=== PATIENT | female | born 1950 | race Caucasian/White ===

== ENCOUNTER → 2017-03-19 | Outpatient (CLI) | payer OTHER ==
[2017-03-19 13:38] LABS: ALT/SGPT 26 U/L (12-78); AST/SGOT 17 U/L (15-37); BLOOD UREA NITROGEN 12 mg/dl (7-18); BUN/CREATININE RATIO 14.9 (10-20); CALCIUM 8.9 mg/dl (8.5-10.1); CARBON DIOXIDE 25 mmol/L (21-32); CHLORIDE 108 mmol/L (98-107); CREATININE 0.82 mg/dl (0.60-1.20); GLUCOSE 107 mg/dl (70-99); POTASSIUM 3.9 mmol/L (3.5-5.1); SODIUM 139 mmol/L (136-145)
[2017-03-19 13:40] LABS: ALB/GLOB RATIO 0.8 (0.9-2); ALKALINE PHOSPHATASE 74 U/L (45-117); CHOLESTEROL 241 mg/dl (0-200); CHOLESTEROL/HDL RATIO 4.8; HDL CHOLESTEROL 50 mg/dl; TRIGLYCERIDES 131 mg/dl (0-150); VERY LOW DENSITY LIPOPROT CALC 26 mg/dl
[2017-03-19 13:53] LABS: ESTIMATED AVERAGE GLUCOSE 123 mg/dl; HA1C FLAG Normal (Normal)
== END | disposition home or self-care (01) ==
LOC: C.LABSPEC 12:32
PROVIDERS: ATTEND Internal Medicine
DX: R73.9 Hyperglycemia, unspecified (principal); E78.5 Hyperlipidemia, unspecified; E66.09 Other obesity due to excess calories

== ENCOUNTER → 2017-04-10 | Outpatient (CLI) | payer OTHER ==
--- NOTE | 2017-04-11 14:20 | MAMMOGRAPHY REPORT ---
BILATERAL DIGITAL SCREENING MAMMOGRAM TOMOSYNTHESIS WITH CAD: 04/10/2017 CLINICAL HISTORY: Routine screening. Patient has no complaints. TECHNIQUE: Breast tomosynthesis in addition to standard 2D mammography was performed. Current study was also evaluated with a Computer Aided Detection (CAD) system. COMPARISON: Comparison is made to exams dated: 04/07/2016 mammogram, 04/06/2015 mammogram, 04/02/2014 mamm ogram, 04/01/2013 mammogram, 03/28/2012 mammogram, and 03/28/2011 mammogram - [facility] BREAST COMPOSITION: The tissue of both breasts is almost entirely fatty. FINDINGS: There are stable grouped punctate calcifications in the right breast. No suspicious mass, architectural distortion or cluster of suspicious microcalcifications is seen. IMPRESSION: ACR BI-RADS CATEGORY 2: BENIGN There is no mammographic evidence of malignancy. A 1 year screening mammogram is recommended. The pa tient will receive written notification of the results. Approximately 10% of breast cancers are not detected with mammography. A negative mammographic report should not delay biopsy if a clinically suggestive mass is present. Jane Spencer M.D. ay/:04/10/2017 18:11:39 Dobie Man: Dulce GONZALEZ(Angelique)(Kelsey), [facility] letter sent: Normal 1/2 BI-RADS Code: ACR BI-RADS Category 2: Benign
== END | disposition home or self-care (01) ==
LOC: C.MAMM 09:38
PROVIDERS: ATTEND Internal Medicine
DX: Z12.31 Encounter for screening mammogram for malignant neoplasm of breast (principal)

== ENCOUNTER 2021-09-30 12:20 | Observation (INO) ==
[2021-09-30] MEDS ORDERED: SODIUM CHLORIDE 0.9% 1000ML 1,000 ML IV SCH (12:45)
--- NOTE | 2021-09-30 13:22 | XRay Report ---
XR chest 1V portable CLINICAL HISTORY: Sepsis. COMPARISON STUDY: Chest radiograph July 05, 2021. FINDINGS: No pneumothorax or pleural effusion is present. There is no evidence for pulmonary edema. C ardiomediastinal silhouette is stable. Moderate left and mild right lung airspace opacities are prese nt. These are new since prior exam. IMPRESSION: Interval development of bilateral airspace opacities greater within the left lung. The f indings favor an infectious process. ACT 112: Negative or not required by law. Electronically signed by: Hunter Phillips M.D. 09/30/2021 1:20 PM
[2021-09-30 13:23] LABS: Prothrombin Time 10.9 Seconds (9.0-12.0)
[2021-09-30 13:42] LABS: Alanine Aminotransferase 64 U/L (7-52); Albumin Globulin Ratio 1.1 (0.9-2); Albumin Level 3.5 gm/dl (3.4-5.0); Alkaline Phosphatase 69 U/L (34-104); Anion Gap 9 (3-11); Aspartate Aminotransferase 33 U/L (13-39); BUN Creatinine Ratio 31.2 (10-20); Bilirubin,Total 0.6 mg/dl (0.2-1.0); Blood Urea Nitrogen 24 mg/dl (6-23); Calcium 8.8 mg/dl (8.5-10.1); Carbon Dioxide 23 mmol/L (21-32); Chloride 102 mmol/L (98-107); Est GFR (African American) 90.7 ml/min; Est GFR (Non-African American) 78.2 ml/min; Globulin 3.3 gm/dl (2.5-4.0); Glucose 108 mg/dl (70-99(Fasting)); Hematocrit (blood only) 39.8 % (37-47); Hemoglobin 13.9 g/dL (12.0-16.0); Magnesium 1.7 mg/dl (1.7-2.4); Mean Corpuscular Hemoglobin 31.2 pg (25-34); Mean Corpuscular Hgb Conc 34.9 g/dL (32-36); Mean Corpuscular Volume 89.4 fL (80-100); Mean Platelet Volume 12.4 fL (7.4-10.4); Platelet Count 86 K/uL (130-400); Potassium 3.3 mmol/L (3.5-5.1); RDW Coefficient of Variation 13.9 % (11.5-14.5); RDW Standard Deviation 45.8 fL (36.4-46.3); Red Blood Count 4.45 M/uL (4.2-5.4); Sodium 134 mmol/L (136-145); Total Protein 6.8 gm/dl (6.0-8.3); White Blood Count 1.24 K/uL (4.8-10.8)
[2021-09-30 13:53] LABS: Basophils # (auto) 0.01 K/uL (0-0.2); Basophils % (auto) 0.8 %; Immature Granulocytes # (auto) 0.01 K/uL (0.00-0.02); Immature Granulocytes % (auto) 0.8 %; Lymphocytes % (auto) 64.5 %; Monocytes # (auto) 0.15 K/uL (0.11-0.59); Monocytes % (auto) 12.1 %; Neutrophils # (auto) 0.27 K/uL (1.4-6.5); Neutrophils % (auto) 21.8 %
[2021-09-30 14:04] LABS: Troponin I < 0.03 ng/ml (0-0.04)
[2021-09-30] MEDS ORDERED: OPTIRAY 320 125ml IV ONE (14:24)
--- NOTE | 2021-09-30 14:29 | CT Scan Report ---
CT head/brain wo con CLINICAL HISTORY: fall Technique: Contiguous axial CT images of the head were acquired from the base of the skull to the khadra xochitl without intravenous contrast administration. Images were viewed in brain, subdural and bone [facility] ws. Automated dose lowering techniques and/or adjustment according to patient size were utilized for this exam. Comparison: None available at the time of this dictation. Findings: The ventricles, basal cisterns, and cerebral sulci are normal. There is no acute intracranial hemorrh age or evidence of acute territorial infarction. Neither mass effect, shift of the midline structures , nor abnormal extra-axial fluid collections are shown. Imaged portions of the paranasal sinuses and mastoid air cells are clear. The orbits appear normal. There are no acute fractures of the calvaria or scalp swelling. Impression: No acute intracranial hemorrhage, no evidence of acute territorial infarction or other acute intracra nial disease process. ACT 112: Negative or not required by law. Electronically signed by: Mark Bernard M.D. 09/30/2021 2:26 PM
--- NOTE | 2021-09-30 14:36 | CT Scan Report ---
CT cervical spine wo con CLINICAL HISTORY: fall TECHNIQUE: Multidetector row helical CT of the cervical spine was performed without administration of intravenous contrast. Coronal and sagittal reformations were obtained. Automated dose lowering techn iques and/or adjustment according to patient size were utilized for this exam. Comparison: None available at the time of this dictation. FINDINGS: No acute fractures or subluxations are identified. Degenerative changes are seen in the visualized sp ine. The alignment is normal. For findings in the chest, please see dedicated CTA chest performed . IMPRESSION: Degenerative changes without evidence of acute bony injury. ACT 112: Negative or not required by law. Electronically signed by: Mark Bernard M.D. 09/30/2021 2:34 PM
--- NOTE | 2021-09-30 14:42 | CT Scan Report ---
CT angio chest PE protocol CLINICAL HISTORY: syncope sob hx ca . Evaluate for pulmonary embolus COMPARISON STUDY: Portable chest from 09/30/2021 CT DOSE: TECHNIQUE: CT Angio of the chest was performed.followed by image post processing with coronal, and s agittal MIP reformats. Contrast Volume: Optiray 320, 120 ml FINDINGS: Vasculature: There is homogeneous perfusion of the pulmonary vasculature bilaterally. No intraluminal filling defects or evidence for pulmonary embolus is seen. Airway: The airway is clear. No endobronchial lesion is identified. Lungs: Compared to the chest radiograph, patchy groundglass opacities are present within both lungs, left greater than right characteristic of a viral type pneumonitis and probable Covid 19 pneumonia. T he lungs are otherwise clear of confluent alveolar opacities, air bronchograms or pulmonary nodules. Pleura: There is no evidence for pleural effusion. There is no evidence for pneumothorax. Mediastinum: There is no evidence for pathologic adenopathy. The heart size is within normal limits. The thoracic aorta is within normal limits. There is no evidence for pericardial effusion. Upper abdomen:The adrenal glands are normal bilaterally. There is a small hiatal hernia. Osseous structures: There is no acute osseous pathology. Impression: 1. No CTA evidence for pulmonary embolus. 2. Compared to the chest radiograph, patchy groundglass opacities are present within both lungs, left greater than right characteristic of a viral type pneumonitis and probable early Covid 19 pneumonia. ACT 112: Negative or not required by law. Electronically signed by: Jeff Herrera M.D. 09/30/2021 2:40 PM
--- NOTE | 2021-09-30 14:44 | CT Scan Report ---
CT abd pelvis IV con only CLINICAL HISTORY: fall TECHNIQUE: Helical axial images of the abdomen and pelvis were obtained and displayed. Automated dose lowering techniques and/or adjustment according to patient size were utilized for this exam. This e xam was performed with intravenous contrast. COMPARISON: None available at the time of this dictation. FINDINGS: Lower chest: No acute abnormality Liver: Hepatic steatosis is noted. Gallbladder and biliary tree: No calcified gallstones. Normal caliber wall. No intra- or extrahepatic biliary ductal dilation. Pancreas: Fatty replacement of the pancreas is seen. Spleen: Unremarkable. Adrenals: Unremarkable. 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 Bladder: Limited evaluation due to underdistention. Reproductive organs: Postsurgical changes are seen in the uterus. Bowel: Diverticulosis is seen without evidence of diverticulitis. A hiatal hernia is seen. The append ix is normal. Lymph nodes Retroperitoneal: Unremarkable. Mesenteric: Unremarkable. Pelvic: Unremarkable. Peritoneum: Normal. Vessels: Atherosclerotic calcifications are seen. Abdominal wall: Unremarkable. Bones: Degenerative changes in the visualized spine. IMPRESSION: 1. No acute abnormalities and in particular no evidence of fracture. 2. Additional findings as above. ACT 112: Negative or not required by law. Electronically signed by: Mark Bernard M.D. 09/30/2021 2:42 PM
--- NOTE | 2021-09-30 16:45 | Emergency Department Note ---
History of Present Illness General Chief complaint: Syncope Stated complaint: CHEMO, FAINTED TWICE LAST NIGHT, DIARRHEA Time Seen by Provider: 09/30/21 12:38 History of Present Illness Provider complaint: Dizziness diarrhea syncope shortness of breath Onset (ago): week(s) 2 Associated symptoms: + nausea/vomiting, + shortness of breath and + syncope; no chest pain, no cough, no fever/chills, no headaches or no weakness 71-year-old female with history of uterine cancer stage I on chemotherapy with Dr. Rose emergency department for dizziness, diarrhea, syncope, and shortness of breath. Patient symptoms have been going on for the last week. Daughter reports that yesterday she had 2 episodes of syncope and laid on the floor for some time. Patient did have COVID-19 in August. Not on any blood thinners.Daughter reports that the patient was in the outpatient [facility] twice this week for IV fluids due to her weakness and low potassium Home Medications Medication Instructions Recorded Confirmed Type ibuprofen 600 mg tablet 600 mg PO DIRECTED PRN 09/30/21 09/30/21 History ondansetron HCl 8 mg tablet 8 mg PO Q8H PRN 09/30/21 09/30/21 History prochlorperazine maleate 10 mg 10 mg PO Q6H PRN 09/30/21 09/30/21 History tablet Allergies Allergy/AdvReac Type Severity Reaction Status Date / Time Penicillins Allergy Intermediate Hives Verified 09/30/21 15:48 Past Med/Surg History Medical History Endometrial cancer dx 02/2021 - surgery 06/2021 + chemo History of herniated intervertebral disc Surgical History H/O colonoscopy History of cataract surgery History of hysterectomy for cancer History of tooth extraction History of tubal ligation Family History Father Cancer Mother Diabetes Sister Diabetes Other No family history of adverse response to anesthesia Social History Smoking Status: Never smoker Second Hand Exposure: No; Hx Alcohol Use: Yes Alcohol type: wine Hx Substance Use: No Preferred Language: Albanian Communication Ability: Effective Cupola Melter Helper Required: No Beliefs That Will Affect Care: None marital status: / Current Living Situation: Family Current Living Situation Comment: son lives with pt current occupational status: retired How many Children do You have: 2 Feels Safe at Home: Yes during the past year weight has: remained stable Assistive Devices: Denture - Upper and Denture - Lower Review of Systems A total of 10 systems reviewed and were otherwise negative Physical Exam Vital Signs Vital Signs - 24 hr 09/30/21 12:22 09/30/21 13:59 Temperature 36.4 C L Temperature Source Temporal Artery Scan Pulse Rate 101 H Pulse Rate [Apical] 71 Respiratory Rate 18 14 Respiratory Depth Normal Blood Pressure 91/59 L Blood Pressure [Right Arm] 122/75 Blood Pressure Mean 69 Blood Pressure Mean [Right Arm] 90 Pulse Oximetry 94 95 Oxygen Delivery Method Room Air Room Air Sepsis Recent Fever Within 48 Hours No Sepsis New/Unexplained Change in Mental Status No Sepsis Action Taken by Nursing No Action Required Physical Exam HENT: Exam performed. -Head: Normocephalic and atraumatic. -Right Ear: External ear normal. No mastoid tenderness. -Left Ear: External ear normal. No mastoid tenderness. -Mouth/Throat: The oropharynx is clear and moist. No trismus in the jaw. No dental abscesses or uvula swelling. No oropharyngeal exudate or tonsillar abscesses. EYES: Conjunctivae and EOM are normal. Pupils are equal, round, and reactive to light. Right eye exhibits no discharge. Left eye exhibits no discharge. No scleral icterus. NECK: Normal range of motion. Neck supple. No JVD present. No spinous process tenderness present. No carotid bruit present. No rigidity. No tracheal deviation and normal range of motion present. No Brudzinski's sign and no Kernig's sign noted. CV: Normal rate, regular rhythm, normal heart sounds and intact distal pulses. There is no peripheral edema. Palpable radial pulses bue. PULM/CHEST: Effort normal and breath sounds normal. No respiratory distress. No stridor. She has no wheezes. She has no rales. -Chest Wall: She exhibits no tenderness. ABD: The abdomen is soft. Bowel sounds are normal. She has no distension. No mass is present. There is no tenderness. There is no rebound, no guarding, no Cartwright's sign and no tenderness at McBurney's point. Rovsig negative MUSC/SKEL: Normal range of motion. There is no peripheral edema, tenderness or deformity. LYMPH: No cervical adenopathy. NEURO: She is alert and oriented to person, place, and time. She has normal strength. No cranial nerve deficit or sensory deficit. Coordination and gait normal. GCS eye subscore is 4. GCS verbal subscore is 5. GCS motor subscore is 6. Cerebellar tests wnl. SKIN: Skin is warm and dry. She is not diaphoretic. PSYCH: She has a normal mood and affect. Behavior is normal. Judgment and thought content normal. Course Course 1238: The patient was evaluated in room B9. A complete history and physical exam was performed Cardiac monitoring: An order was placed for continuous cardiac monitoring. The monitor shows a rate of 70 with sinus rhythm 1535: Vital signs stable. Labs show leukopenia of 1.24 with absolute neutrophil count of 0.27. Discussed this with the patient being on chemotherapy. Patient is not having any fevers. Potassium 3.3. Imaging shows no acute traumatic injury. Imaging does show, pneumonia. Given the patient's recurrent syncopal episodes and weakness. Patient will be admitted to the hospital service Dr. Oconnor notified. Administered Medications Discontinued Medications Sodium Chloride (Nss 1000ml) 1,000 mls @ 999 mls/hr IV .Q1H1M EWA Stop: 09/30/21 13:45 Last Infusion: 09/30/21 14:00 Dose: 0 mls/hr Documented by: [id number] Admin: 09/30/21 13:08 Dose: 999 mls/hr Documented by: [id number] Ioversol (Optiray 320 125ml) 120 ml IV ONCE ONE Stop: 09/30/21 14:25 Last Admin: 09/30/21 14:16 Dose: 120 ml Documented by: [id number] Medical Decision Making Laboratory Data Result diagrams: 09/30/21 12:54 09/30/21 12:54 Lab Results 09/30/21 09/30/21 09/30/21 Range/Units 12:54 12:54 12:54 WBC 1.24 L (4.8-10.8) K/uL RBC 4.45 (4.2-5.4) M/uL Hgb 13.9 (12.0-16.0) g/dL Hct 39.8 (37-47) % MCV 89.4 (80-100) fL MCH 31.2 (25-34) pg MCHC 34.9 (32-36) g/dL RDW Std Deviation 45.8 (36.4-46.3) fL RDW Coeff of Paul 13.9 (11.5-14.5) % Plt Count 86 L (130-400) K/uL MPV 12.4 H (7.4-10.4) fL Immature Gran % (Auto) 0.8 % Neut % (Auto) 21.8 % Lymph % (Auto) 64.5 % Tyler % (Auto) 12.1 % Eos % (Auto) 0.0 % Baso % (Auto) 0.8 % Neut # (Auto) 0.27 L* (1.4-6.5) K/uL Lymph # (Auto) 0.80 L (1.2-3.4) K/uL Tyler # (Auto) 0.15 (0.11-0.59) K/uL Eos # (Auto) 0.00 (0-0.5) K/uL Baso # (Auto) 0.01 (0-0.2) K/uL Immature Gran # (Auto) 0.01 (0.00-0.02) K/uL PT 10.9 (9.0-12.0) Seconds INR 1.0 (0.9-1.1) APTT 27.0 (21.0-31.0) Seconds PTT Ratio 1.0 Sodium 134 L (136-145) mmol/L Potassium 3.3 L (3.5-5.1) mmol/L Chloride 102 (98-107) mmol/L Carbon Dioxide 23 (21-32) mmol/L Anion Gap 9 (3-11) BUN 24 H (6-23) mg/dl Creatinine 0.77 (0.6-1.2) mg/dl Est Cr Clr Drug Dosing Not Reportable Est GFR ( Amer) 90.7 ml/min Est GFR (Non-Af Amer) 78.2 ml/min BUN/Creatinine Ratio 31.2 H (10-20) Glucose 108 H (70-99(Fasting)) mg/dl Lactate (0.4-2.0) mmol/L Calcium 8.8 (8.5-10.1) mg/dl Magnesium 1.7 (1.7-2.4) mg/dl Total Bilirubin 0.6 (0.2-1.0) mg/dl AST 33 (13-39) U/L ALT 64 H (7-52) U/L Alkaline Phosphatase 69 (34-104) U/L Total Creatine Kinase (26-192) U/L Troponin I < 0.03 (0-0.04) ng/ml Total Protein 6.8 (6.0-8.3) gm/dl Albumin 3.5 (3.4-5.0) gm/dl Globulin 3.3 (2.5-4.0) gm/dl Albumin/Globulin Ratio 1.1 (0.9-2) Procalcitonin (0-0.5) ng/ml SARS-CoV-2, RNA, NAAT (NEGATIVE) 09/30/21 09/30/21 09/30/21 Range/Units 12:54 12:54 12:54 WBC (4.8-10.8) K/uL RBC (4.2-5.4) M/uL Hgb (12.0-16.0) g/dL Hct (37-47) % MCV (80-100) fL MCH (25-34) pg MCHC (32-36) g/dL RDW Std Deviation (36.4-46.3) fL RDW Coeff of Paul (11.5-14.5) % Plt Count (130-400) K/uL MPV (7.4-10.4) fL Immature Gran % (Auto) % Neut % (Auto) % Lymph % (Auto) % Tyler % (Auto) % Eos % (Auto) % Baso % (Auto) % Neut # (Auto) (1.4-6.5) K/uL Lymph # (Auto) (1.2-3.4) K/uL Tyler # (Auto) (0.11-0.59) K/uL Eos # (Auto) (0-0.5) K/uL Baso # (Auto) (0-0.2) K/uL Immature Gran # (Auto) (0.00-0.02) K/uL PT (9.0-12.0) Seconds INR (0.9-1.1) APTT (21.0-31.0) Seconds PTT Ratio Sodium (136-145) mmol/L Potassium (3.5-5.1) mmol/L Chloride (98-107) mmol/L Carbon Dioxide (21-32) mmol/L Anion Gap (3-11) BUN (6-23) mg/dl Creatinine (0.6-1.2) mg/dl Est Cr Clr Drug Dosing Est GFR ( Amer) ml/min Est GFR (Non-Af Amer) ml/min BUN/Creatinine Ratio (10-20) Glucose (70-99(Fasting)) mg/dl Lactate 1.1 (0.4-2.0) mmol/L Calcium (8.5-10.1) mg/dl Magnesium (1.7-2.4) mg/dl Total Bilirubin (0.2-1.0) mg/dl AST (13-39) U/L ALT (7-52) U/L Alkaline Phosphatase (34-104) U/L Total Creatine Kinase 119 (26-192) U/L Troponin I (0-0.04) ng/ml Total Protein (6.0-8.3) gm/dl Albumin (3.4-5.0) gm/dl Globulin (2.5-4.0) gm/dl Albumin/Globulin Ratio (0.9-2) Procalcitonin 0.06 (0-0.5) ng/ml SARS-CoV-2, RNA, NAAT (NEGATIVE) 09/30/21 Range/Units 13:05 WBC (4.8-10.8) K/uL RBC (4.2-5.4) M/uL Hgb (12.0-16.0) g/dL Hct (37-47) % MCV (80-100) fL MCH (25-34) pg MCHC (32-36) g/dL RDW Std Deviation (36.4-46.3) fL RDW Coeff of Paul (11.5-14.5) % Plt Count (130-400) K/uL MPV (7.4-10.4) fL Immature Gran % (Auto) % Neut % (Auto) % Lymph % (Auto) % Tyler % (Auto) % Eos % (Auto) % Baso % (Auto) % Neut # (Auto) (1.4-6.5) K/uL Lymph # (Auto) (1.2-3.4) K/uL Tyler # (Auto) (0.11-0.59) K/uL Eos # (Auto) (0-0.5) K/uL Baso # (Auto) (0-0.2) K/uL Immature Gran # (Auto) (0.00-0.02) K/uL PT (9.0-12.0) Seconds INR (0.9-1.1) APTT (21.0-31.0) Seconds PTT Ratio Sodium (136-145) mmol/L Potassium (3.5-5.1) mmol/L Chloride (98-107) mmol/L Carbon Dioxide (21-32) mmol/L Anion Gap (3-11) BUN (6-23) mg/dl Creatinine (0.6-1.2) mg/dl Est Cr Clr Drug Dosing Est GFR ( Amer) ml/min Est GFR (Non-Af Amer) ml/min BUN/Creatinine Ratio (10-20) Glucose (70-99(Fasting)) mg/dl Lactate (0.4-2.0) mmol/L Calcium (8.5-10.1) mg/dl Magnesium (1.7-2.4) mg/dl Total Bilirubin (0.2-1.0) mg/dl AST (13-39) U/L ALT (7-52) U/L Alkaline Phosphatase (34-104) U/L Total Creatine Kinase (26-192) U/L Troponin I (0-0.04) ng/ml Total Protein (6.0-8.3) gm/dl Albumin (3.4-5.0) gm/dl Globulin (2.5-4.0) gm/dl Albumin/Globulin Ratio (0.9-2) Procalcitonin (0-0.5) ng/ml SARS-CoV-2, RNA, NAAT POSITIVE A* (NEGATIVE) Imaging Data Radiologist's Impression: Chest X-Ray 09/30/21 12:39 XR chest 1V portable CLINICAL HISTORY: Sepsis. COMPARISON STUDY: Chest radiograph July 05, 2021. FINDINGS: No pneumothorax or pleural effusion is present. There is no evidence for pulmonary edema. Cardiomediastinal silhouette is stable. Moderate left and mild right lung airspace opacities are present. These are new since prior exam. IMPRESSION: Interval development of bilateral airspace opacities greater within the left lung. The findings favor an infectious process. ACT 112: Negative or not required by law. Electronically signed by: Hunter Phillips M.D. 09/30/2021 1:20 PM Abdomen/Pelvis CT 09/30/21 12:50 CT abd pelvis IV con only CLINICAL HISTORY: fall TECHNIQUE: Helical axial images of the abdomen and pelvis were obtained and displayed. Automated dose lowering techniques and/or adjustment according to patient size were utilized for this exam. This exam was performed with intravenous contrast. COMPARISON: None available at the time of this dictation. FINDINGS: Lower chest: No acute abnormality Liver: Hepatic steatosis is noted. Gallbladder and biliary tree: No calcified gallstones. Normal caliber wall. No intra- or extrahepatic biliary ductal dilation. Pancreas: Fatty replacement of the pancreas is seen. Spleen: Unremarkable. Adrenals: Unremarkable. 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 Bladder: Limited evaluation due to underdistention. Reproductive organs: Postsurgical changes are seen in the uterus. Bowel: Diverticulosis is seen without evidence of diverticulitis. A hiatal hernia is seen. The appendix is normal. Lymph nodes Retroperitoneal: Unremarkable. Mesenteric: Unremarkable. Pelvic: Unremarkable. Peritoneum: Normal. Vessels: Atherosclerotic calcifications are seen. Abdominal wall: Unremarkable. Bones: Degenerative changes in the visualized spine. IMPRESSION: 1. No acute abnormalities and in particular no evidence of fracture. 2. Additional findings as above. ACT 112: Negative or not required by law. Electronically signed by: Mark Bernard M.D. 09/30/2021 2:[address] 09/30/21 12:50 CT cervical spine wo con CLINICAL HISTORY: fall TECHNIQUE: Multidetector row helical CT of the cervical spine was performed without administration of intravenous contrast. Coronal and sagittal reformations were obtained. Automated dose lowering techniques and/or adjustment according to patient size were utilized for this exam. Comparison: None available at the time of this dictation. FINDINGS: No acute fractures or subluxations are identified. Degenerative changes are seen in the visualized spine. The alignment is normal. For findings in the chest, please see dedicated CTA chest performed same day. IMPRESSION: Degenerative changes without evidence of acute bony injury. ACT 112: Negative or not required by law. Electronically signed by: Mark Bernard M.D. 09/30/2021 2:34 PM Chest CTA 09/30/21 12:50 CT angio chest PE protocol CLINICAL HISTORY: syncope sob hx ca . Evaluate for pulmonary embolus COMPARISON STUDY: Portable chest from 09/30/2021 CT DOSE: TECHNIQUE: CT Angio of the chest was performed.followed by image post processing with coronal, and sagittal MIP reformats. Contrast Volume: Optiray 320, 120 ml FINDINGS: Vasculature: There is homogeneous perfusion of the pulmonary vasculature bilaterally. No intraluminal filling defects or evidence for pulmonary embolus is seen. Airway: The airway is clear. No endobronchial lesion is identified. Lungs: Compared to the chest radiograph, patchy groundglass opacities are present within both lungs, left greater than right characteristic of a viral type pneumonitis and probable Covid 19 pneumonia. The lungs are otherwise clear of confluent alveolar opacities, air bronchograms or pulmonary nodules. Pleura: There is no evidence for pleural effusion. There is no evidence for pneumothorax. Mediastinum: There is no evidence for pathologic adenopathy. The heart size is within normal limits. The thoracic aorta is within normal limits. There is no evidence for pericardial effusion. Upper abdomen:The adrenal glands are normal bilaterally. There is a small hiatal hernia. Osseous structures: There is no acute osseous pathology. Impression: 1. No CTA evidence for pulmonary embolus. 2. Compared to the chest radiograph, patchy groundglass opacities are present within both lungs, left greater than right characteristic of a viral type pneumonitis and probable early Covid 19 pneumonia. ACT 112: Negative or not required by law. Electronically signed by: Jeff Herrera M.D. 09/30/2021 2:[address] 09/30/21 12:50 CT head/brain wo con CLINICAL HISTORY: fall Technique: Contiguous axial CT images of the head were acquired from the base of the skull to the vertex without intravenous contrast administration. Images were viewed in brain, subdural and bone windows. Automated dose lowering techniques and/or adjustment according to patient size were utilized for this exam. Comparison: None available at the time of this dictation. Findings: The ventricles, basal cisterns, and cerebral sulci are normal. There is no acute intracranial hemorrhage or evidence of acute territorial infarction. Neither mass effect, shift of the midline structures, nor abnormal extra-axial fluid collections are shown. Imaged portions of the paranasal sinuses and mastoid air cells are clear. The orbits appear normal. There are no acute fractures of the calvaria or scalp swelling. Impression: No acute intracranial hemorrhage, no evidence of acute territorial infarction or other acute intracranial disease process. ACT 112: Negative or not required by law. Electronically signed by: Mark Bernard M.D. 09/30/2021 2:26 PM ECG Data Indication: + SOB/dyspnea Rate (beats per minute): 76 Rhythm: + normal sinus ECG Intervals/blocks: + Normal QRS, + Normal ND and + Normal QT-c ECG ST segments: + Normal ST segments [facility] Narrative 1238: The patient was evaluated in room B9. A complete history and physical exam was performed Cardiac monitoring: An order was placed for continuous cardiac monitoring. The monitor shows a rate of 70 with sinus rhythm 1535: Vital signs stable. Labs show leukopenia of 1.24 with absolute neutrophil count of 0.27. Discussed this with the patient being on chemotherapy. Patient is not having any fevers. Potassium 3.3. Imaging shows no acute traumatic injury. Imaging does show, pneumonia. Given the patient's recurrent syncopal episodes and weakness. Patient will be admitted to the hospital service Dr. Oconnor notified. Impression & Plan Syncope, Uterine cancer Discharge Plan Visit Data Chief Complaint: Syncope Stated Complaint: CHEMO, FAINTED TWICE LAST NIGHT, DIARRHEA Discharge Problem: Syncope, Uterine cancer Patient Disposition: Being Evaluated by Hospitalist Forms Stand Alone Forms: [facility] [place] [employer] Prescriptions Prescriptions: No Action ondansetron HCl 8 mg tablet 8 mg PO Q8H PRN (Reason: NAUSEA/VOMITING) RF: 0 prochlorperazine maleate 10 mg tablet 10 mg PO Q6H PRN (Reason: NAUSEA/VOMITING) RF: 0 ibuprofen 600 mg tablet 600 mg PO DIRECTED PRN (Reason: Pain) RF: 0 Referrals Referrals: Renan Reyes MD [Primary Care Provider] -
[2021-09-30] MEDS ORDERED: POTASSIUM CHLORIDE CRTAB 20 MEQ TABCR PO STA (18:19)
--- NOTE | 2021-09-30 18:46 | History & Physical Report ---
Date of Service September 30, 2021 Assessment & Plan (1) Syncope: Plan: -Etiology likely due to dehydration/orthostasis response in the setting of ongoing GI losses as well as patient's poor po intake the past week s/p chemo. Also have to consider the possibility of met dz to brain. Dr. Ko was planning to order a brain MRI on 10/05 to investigate ? mets to brain. Will order while inpatient. -LR IVF @ 80 cc/hr, had received 1 L NS in bolus. -Check orthostatics in the morning (2) Hypokalemia: Plan: -K+ 3.3 in ED, Mg2+ low end normal at 1.7. has been going to [facility] for IVF and K repletion. -40 mEq KCl ordered. Also will replete Mg with 2 g in the ssetting of ongoing GI losses. -Repeat BMP w/ Mg2+ in AM. (3) Diarrhea: Plan: -Has been incredibly frequent since Sunday evening, patient unable to quantify. Yellow/orange in appearance, without mucus or blood noted. No abdominal pain. -Stool PCR to include c-diff ordered, pending. If c-diff is NEG, can start anti- diarrheal tomorrow. (4) Pancytopenia: Plan: -WBC 1.24, (4.21 on 09/26) PLT 86 (125 on 09/26) Patient with chills at home but no fever. -No sign of infections, without cough, URI sx, abdominal pain, dysuria. -Placed on neutropenic precautions, Dr. Ko with oncology consulted, ? Neupogen (5) Shortness of breath: Plan: -Likely a side effect of her COVID which she tested positive for on 09/13, still testing positive today. On RA. -Can order her nebs PRN. -CTA chest--> patchy groundglass opacities are present within both lungs, left greater than right characteristic of a viral type pneumonitis and probable early Covid 19 pneumonia. -We will keep on isolation precautions for now -No need for antibiotics -Outside the window for any further treatment for Covid (6) Uterine cancer: Plan: -S/P lap hysterectomy in June 2021, undergoing chemotherapy--> 2nd cycle last , 09/22. -Patient with new onset dizziness for week or so, per pt Dr. Ko was planning to order a brain MRI on 10/05 to investigate ? edil to brain. Will order while inpatient. Plan: -Admit to med/surg with tele. -SCDs and Lovenox for DVT ppx. -Full Code. History of Present Illness Chief Complaint: generalized weakness Primary Care Provider: Renan Reyes MD Patient is 71-year-old previously healthy female diagnosed with uterine cancer in June 2021 and COVID in August 2021 who presents today with complaints of generalized weakness. Patient has had 2 cycles of chemotherapy so far, most recently had second round last . Since then she has developed fatigue, generalized weakness, dizziness. She is not nauseous or vomiting, however reports she does not have an appetite so she is struggling to keep up with p.o. intake. Additionally, she has felt "winded ", she is becoming out of breath with daily activities of living, daughter is had to help dress her on several occasions due to weakness and shortness of breath. Most recently, on Sunday evening she developed diarrhea that has been frequent since then. She does not note blood in it, states it looks dark yellow/orange. She has not taken anything for alleviation. Last night, patient had 2 unwitnessed syncopal episodes while she was in her bathroom. Denies hitting her head, but does not remember events leading up to or during fall. Daughter reports taking orthostatic VS at home, states BP did drop a decent bit upon standing. Denies chest pain, palpitations, cough, nausea, vomiting, constipation, melena, hematochezia, focal weakness, increased urinary frequency urgency, dysuria, hematuria.She has started going to [facility] for [facility]F and potassium supplementation. Allergies Allergy/AdvReac Type Severity Reaction Status Date / Time Penicillins Allergy Intermediate Hives Verified 09/30/21 15:48 Home Medications Medication Instructions Recorded Confirmed Type ibuprofen 600 mg tablet 600 mg PO DIRECTED PRN 09/30/21 09/30/21 History ondansetron HCl 8 mg tablet 8 mg PO Q8H PRN 09/30/21 09/30/21 History prochlorperazine maleate 10 mg 10 mg PO Q6H PRN 09/30/21 09/30/21 History tablet Past Med/Surg History Medical History Endometrial cancer dx 02/2021 - surgery 06/2021 + chemo History of herniated intervertebral disc Surgical History H/O colonoscopy History of cataract surgery History of hysterectomy for cancer History of tooth extraction History of tubal ligation Family History Father Cancer Mother Diabetes Sister Diabetes Other No family history of adverse response to anesthesia Social History Smoking Status: Never smoker Second Hand Exposure: No; Hx Alcohol Use: No Hx Substance Use: No Preferred Language: Belarusian Communication Ability: Effective Storage Engineer Required: No Beliefs That Will Affect Care: None marital status: / Current Living Situation: Family Current Living Situation Comment: with son current occupational status: retired How many Children do You have: 2 Other Information That Helps Us Care for You: No Feels Safe at Home: Yes Safety Concerns: Feels Safe At This Time during the past year weight has: remained stable Assistive Devices: Denture - Upper and Denture - Lower Review of Systems Review of Systems: Constitutional: reports generalized weakness and fatigue with chills; no recorded fever, night sweats, acute weight changes Eyes: No diplopia, no worsening or blurred vision ENT: normal hearing, no trouble swallowing Respiratory: has felt SOB for several weeks; No cough Cardviovascular: 2 episodes of syncope last evening, unwitnessed; no chest pain, no palpitations, no chest tightness Abdomen: has had diarrhea x2 days; no pain, nausea, vomiting, or constipation; no hematochezia or melena Musculoskeletal: No joint pain, calf pain, swelling Neurologic: no weakness, numbness/tingling, or balance problems Psychiatric: No anxiety or depression Skin: No rash or itch Results & Data Results & Data ([facility]) Vital Signs (Past 12 Hours) Vital Signs Temp Pulse Pulse Resp BP BP Pulse Ox 09/30/21 17:44 74 16 127/74 96 09/30/21 13:59 71 14 122/75 95 09/30/21 12:22 36.4 C L 101 H 18 91/59 L 94 Laboratory Results Abnormal lab results 09/30/21 09/30/21 09/30/21 Range/Units 12:54 12:54 13:05 WBC 1.24 L (4.8-10.8) K/uL Plt Count 86 L (130-400) K/uL MPV 12.4 H (7.4-10.4) fL Neut # (Auto) 0.27 L* (1.4-6.5) K/uL Lymph # (Auto) 0.80 L (1.2-3.4) K/uL Sodium 134 L (136-145) mmol/L Potassium 3.3 L (3.5-5.1) mmol/L BUN 24 H (6-23) mg/dl BUN/Creatinine Ratio 31.2 H (10-20) Glucose 108 H (70-99(Fasting)) mg/dl ALT 64 H (7-52) U/L SARS-CoV-2, RNA, NAAT POSITIVE A* (NEGATIVE) Diagnostic Findings Chest X-Ray 09/30/21 12:39 XR chest 1V portable CLINICAL HISTORY: Sepsis. COMPARISON STUDY: Chest radiograph July 05, 2021. FINDINGS: No pneumothorax or pleural effusion is present. There is no evidence for pulmonary edema. Cardiomediastinal silhouette is stable. Moderate left and mild right lung airspace opacities are present. These are new since prior exam. IMPRESSION: Interval development of bilateral airspace opacities greater within the left lung. The findings favor an infectious process. ACT 112: Negative or not required by law. Electronically signed by: Hunter Phillips M.D. 09/30/2021 1:20 PM Abdomen/Pelvis CT 09/30/21 12:50 CT abd pelvis IV con only CLINICAL HISTORY: fall TECHNIQUE: Helical axial images of the abdomen and pelvis were obtained and displayed. Automated dose lowering techniques and/or adjustment according to patient size were utilized for this exam. This exam was performed with intravenous contrast. COMPARISON: None available at the time of this dictation. FINDINGS: Lower chest: No acute abnormality Liver: Hepatic steatosis is noted. Gallbladder and biliary tree: No calcified gallstones. Normal caliber wall. No intra- or extrahepatic biliary ductal dilation. Pancreas: Fatty replacement of the pancreas is seen. Spleen: Unremarkable. Adrenals: Unremarkable. 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 Bladder: Limited evaluation due to underdistention. Reproductive organs: Postsurgical changes are seen in the uterus. Bowel: Diverticulosis is seen without evidence of diverticulitis. A hiatal hernia is seen. The appendix is normal. Lymph nodes Retroperitoneal: Unremarkable. Mesenteric: Unremarkable. Pelvic: Unremarkable. Peritoneum: Normal. Vessels: Atherosclerotic calcifications are seen. Abdominal wall: Unremarkable. Bones: Degenerative changes in the visualized spine. IMPRESSION: 1. No acute abnormalities and in particular no evidence of fracture. 2. Additional findings as above. ACT 112: Negative or not required by law. Electronically signed by: Mark Bernard M.D. 09/30/2021 2:[address] 09/30/21 12:50 CT cervical spine wo con CLINICAL HISTORY: fall TECHNIQUE: Multidetector row helical CT of the cervical spine was performed without administration of intravenous contrast. Coronal and sagittal reformations were obtained. Automated dose lowering techniques and/or adjustment according to patient size were utilized for this exam. Comparison: None available at the time of this dictation. FINDINGS: No acute fractures or subluxations are identified. Degenerative changes are seen in the visualized spine. The alignment is normal. For findings in the chest, please see dedicated CTA chest performed same day. IMPRESSION: Degenerative changes without evidence of acute bony injury. ACT 112: Negative or not required by law. Electronically signed by: Mark Bernard M.D. 09/30/2021 2:34 PM Chest CTA 09/30/21 12:50 CT angio chest PE protocol CLINICAL HISTORY: syncope sob hx ca . Evaluate for pulmonary embolus COMPARISON STUDY: Portable chest from 09/30/2021 CT DOSE: TECHNIQUE: CT Angio of the chest was performed.followed by image post processing with coronal, and sagittal MIP reformats. Contrast Volume: Optiray 320, 120 ml FINDINGS: Vasculature: There is homogeneous perfusion of the pulmonary vasculature bilaterally. No intraluminal filling defects or evidence for pulmonary embolus is seen. Airway: The airway is clear. No endobronchial lesion is identified. Lungs: Compared to the chest radiograph, patchy groundglass opacities are present within both lungs, left greater than right characteristic of a viral type pneumonitis and probable Covid 19 pneumonia. The lungs are otherwise clear of confluent alveolar opacities, air bronchograms or pulmonary nodules. Pleura: There is no evidence for pleural effusion. There is no evidence for pneumothorax. Mediastinum: There is no evidence for pathologic adenopathy. The heart size is within normal limits. The thoracic aorta is within normal limits. There is no evidence for pericardial effusion. Upper abdomen:The adrenal glands are normal bilaterally. There is a small hiatal hernia. Osseous structures: There is no acute osseous pathology. Impression: 1. No CTA evidence for pulmonary embolus. 2. Compared to the chest radiograph, patchy groundglass opacities are present within both lungs, left greater than right characteristic of a viral type pneumonitis and probable early Covid 19 pneumonia. ACT 112: Negative or not required by law. Electronically signed by: Jeff Herrera M.D. 09/30/2021 2:[address] 09/30/21 12:50 CT head/brain wo con CLINICAL HISTORY: fall Technique: Contiguous axial CT images of the head were acquired from the base of the skull to the vertex without intravenous contrast administration. Images were viewed in brain, subdural and bone windows. Automated dose lowering techniques and/or adjustment according to patient size were utilized for this exam. Comparison: None available at the time of this dictation. Findings: The ventricles, basal cisterns, and cerebral sulci are normal. There is no acute intracranial hemorrhage or evidence of acute territorial infarction. Neither mass effect, shift of the midline structures, nor abnormal extra-axial fluid collections are shown. Imaged portions of the paranasal sinuses and mastoid air cells are clear. The orbits appear normal. There are no acute fractures of the calvaria or scalp swelling. Impression: No acute intracranial hemorrhage, no evidence of acute territorial infarction or other acute intracranial disease process. ACT 112: Negative or not required by law. Electronically signed by: Mark Bernard M.D. 09/30/2021 2:26 PM ECG Additional Comments: Normal sinus rhythm Left axis deviation Voltage criteria for left ventricular hypertrophy Abnormal ECG No previous ECGs available Confirmed by Giorgio Hoyos ([id number]) on 09/30/2021 7:10:26 PM Code Status & VTE Plan Code Status Full Code. VTE Prophylaxis Plan VTE Prophylaxis will be ordered: Yes Supervising Physician Co-Signing Physician Notes PA Supervision Note: I personally saw and examined the patient. I verified all wall points and agree with RITA Martins with the following exceptions and/or additions: This patient is a 71-year-old female with history of uterine cancer currently on chemotherapy who presents with severe diarrhea, generalized weakness and falls with syncope, thought to be related to orthostasis She has had more than 10 loose stools per day that are nonbloody since starting chemotherapy. She has barely eating or drinking anything by mouth given low appetite and some nausea. Recently also had Covid 2 weeks ago for that. Currently has some shortness of breath. Denies abdominal pains. Did not injure herself or hit her head that she knows of when she passed out in the bathroom. She denies any joint pains, denies headache. O- Vitals reviewed Gen: AAOx3, NAD, alopecia HEENT: Anicteric sclerae, EOMI CV: RRR no mgr nl S1S2 Pulm: CTAB no wcr Abd: +BS soft NT ND no masses or hernias Ext: No edema, 2+ DP pulses Skin: No rashes, warm/dry Neuro: Full strength throughout Labs and rads reviewed, ECG reviewed [id number]-old female with uterine cancer on chemotherapy, here with dehydration secondary to diarrhea, with hypokalemia and syncope likely related to orthostasis. -Admit for IV fluid hydration, replacement of potassium -Check orthostatics in the morning -Check brain MRI -Follow CBC counts and hold Lovenox if platelets less than 50,000 PG Care Time/CCT Total # of Minutes Spent Total Time Spent with Patient: Total time spent is greater than 50% in coordination of care (as documented) at patient's floor/unit and/or counseling patient: Coding Level of Care Code 75682 Initial Inpt Care Lvl 3 Diagnoses Syncope R55 Syncope type: unspecified Uterine cancer C55 Malignant neoplasm of uterus location: unspecified site of uterus Hypokalemia E87.6 Pancytopenia D61.818 Diarrhea R19.7 Shortness of breath R06.02 (1) Syncope Syncope type: unspecified Qualified Code(s): R55 - Syncope and collapse (2) Uterine cancer Malignant neoplasm of uterus location: unspecified site of uterus Qualified Code(s): C55 - Malignant neoplasm of uterus, part unspecified
--- NOTE | 2021-09-30 19:10 | Electrocardiogram Report ---
Test Reason : Blood Pressure : / mmHG Vent. Rate : 076 BPM Atrial Rate : 076 BPM P-R Int : 144 ms QRS Dur : 090 ms QT Int : 386 ms P-R-T Axes : 036 -30 049 degrees QTc Int : 434 ms Normal sinus rhythm Left axis deviation Voltage criteria for left ventricular hypertrophy Abnormal ECG No previous ECGs available Confirmed by Giorgio Hoyos ([id number]) on 09/30/2021 7:10:26 PM Referred By: REFERRED SELF Confirmed By:Cruz Hoyos
[2021-09-30] MEDS: LACTATED RINGER'S 1,000 ML IV SCH (19:37)
[2021-09-30] MEDS ORDERED: ALBUTEROL 0.083% NEBU SOLN 3 ML VIAL NEB PRN (20:57)
[2021-09-30] MEDS ORDERED: ONDANSETRON INJ 2 MG/ML 2 ML VIAL IV PRN (20:57)
[2021-09-30] MEDS ORDERED: POLYETHYLENE (MIRALAX) 17 GM PACK PO PRN (20:57)
[2021-09-30] MEDS ORDERED: ACETAMINOPHEN 325 MG TAB PO PRN (20:57)
[2021-09-30] MEDS ORDERED: GADOBUTROL 65ML VIAL IV ONE (22:13)
--- NOTE | 2021-09-30 22:38 | Magnetic Resonance Report ---
MR brain wo/w con CLINICAL HISTORY: uterine CA with new onset dizziness TECHNIQUE: Multiplanar and multisequence MR images of the brain were obtained prior to and following administration of gadolinium contrast. Comparison: None available at the time of this dictation. FINDINGS: No abnormal restricted diffusion is identified. Foci of T2 and FLAIR hyperintensity are noted in the paraventricular areas consistent with chronic small vessel ischemic disease. Ex vacuo ventriculomegal y and sulcal enlargement is noted compatible with diffuse encephalomalacia. There are no masses, mass effect, or midline shift. No abnormal enhancement is seen. There is no evidence of acute intraparenc hymal hemorrhage. No extra axial fluid collections are seen. The corpus callosum, pituitary gland, an d cerebellar tonsils appear grossly unremarkable. Flow voids of the major intracranial arterial vessels are identified. The imaged portions of the para nasal sinuses, mastoid air cells, and orbits are unremarkable. IMPRESSION: No acute abnormalities in particular no evidence of metastatic disease.. ACT 112: Negative or not required by law. Electronically signed by: Mark Bernard M.D. 09/30/2021 10:37 PM
[2021-09-30] MEDS: POTASSIUM CHLORIDE / WTR 10 MEQ/100 ML PLCT IV SCH (22:57)
[2021-09-30] MEDS: ENOXAPARIN INJ 40 MG/0.4 ML SYR SQ SCH (23:07)
[2021-09-30 23:46] LABS: Appearance Urine Clear (Clear); Bacteria Urine Automated Negative (Negative); Bilirubin Urine Negative (Negative); Blood Urine Trace (Negative); Color Urine Dark Yellow; Epithelial Cell Urine Auto >30 /lpf (0-5); Glucose Urine UA Negative (Negative); Ketones Urine Negative (Negative); Leukocyte Esterase Urine Negative (Negative); Nitrite Urine Negative (Negative); Protein Urine Trace (Negative); Specific Gravity Urine > 1.045 (1.000-1.030); Urobilinogen Urine Negative (Negative)
[2021-10-01] MEDS: POTASSIUM CHLORIDE / WTR 10 MEQ/100 ML PLCT IV SCH (00:15)
[2021-10-01 01:00] LABS: Adenovirus F 40/41 PCR Not Detected (NotDetected); Astrovirus PCR Not Detected (NotDetected); Campylobacter PCR Not Detected (NotDetected); Clostridium diff Toxin A/B PCR Not Detected (NotDetected); Cryptosporidium PCR Not Detected (NotDetected); Cyclospora cayetanensis PCR Not Detected (NotDetected); Entamoeba histolytica PCR Not Detected (NotDetected); Enteroaggregative E.coli(EAEC) Not Detected (NotDetected); Enteropathogenic E.coli (EPEC) Not Detected (NotDetected); Enterotoxigenic E.coli (ETEC) Not Detected (NotDetected); Giardia lamblia PCR Not Detected (NotDetected); Norovirus GI/GII PCR Not Detected (NotDetected); Plesiomonas shigelloides PCR Not Detected (NotDetected); Rotavirus A PCR Not Detected (NotDetected); Salmonella PCR Not Detected (NotDetected); Sapovirus PCR Not Detected (NotDetected); Shiga-like Toxin E.coli (STEC) Not Detected (NotDetected); Shigella/Enteroinvasive E.coli Not Detected (NotDetected); Vibrio cholerae PCR Not Detected (NotDetected); Vibrio species PCR Not Detected (NotDetected); Yersinia enterocolitica PCR Not Detected (NotDetected)
[2021-10-01 08:07] LABS: Hematocrit (blood only) 35.8 % (37-47); Hemoglobin 11.9 g/dL (12.0-16.0); Mean Corpuscular Hemoglobin 30.4 pg (25-34); Mean Corpuscular Hgb Conc 33.2 g/dL (32-36); Mean Corpuscular Volume 91.3 fL (80-100); Mean Platelet Volume 12.3 fL (7.4-10.4); Platelet Count 75 K/uL (130-400); RDW Coefficient of Variation 14.2 % (11.5-14.5); RDW Standard Deviation 46.9 fL (36.4-46.3); Red Blood Count 3.92 M/uL (4.2-5.4); White Blood Count 1.15 K/uL (4.8-10.8)
[2021-10-01 08:20] LABS: BUN Creatinine Ratio 33.3 (10-20); Calcium 7.6 mg/dl (8.5-10.1); Creatinine Clr Calc Pharmacy 85.4 ml/min; Est GFR (African American) 108.9 ml/min; Est GFR (Non-African American) 93.9 ml/min; Magnesium 1.8 mg/dl (1.7-2.4); Potassium 3.5 mmol/L (3.5-5.1)
[2021-10-01 08:26] LABS: Basophils # (auto) 0.01 K/uL (0-0.2); Basophils % (auto) 0.9 %; Eosinophils # (auto) 0.01 K/uL (0-0.5); Eosinophils % (auto) 0.9 %; Lymphocytes # (auto) 0.87 K/uL (1.2-3.4); Lymphocytes % (auto) 75.7 %; Monocytes # (auto) 0.18 K/uL (0.11-0.59); Monocytes % (auto) 15.7 %; Neutrophils # (auto) 0.08 K/uL (1.4-6.5); Neutrophils % (auto) 6.8 %
[2021-10-01] MEDS ORDERED: POTASSIUM CHLORIDE CRTAB 20 MEQ TABCR PO STA (08:28)
[2021-10-01] MEDS: LACTATED RINGER'S 1,000 ML IV SCH ×2 (08:29→20:56)
[2021-10-01] MEDS ORDERED: MAGNESIUM SULFATE / D5W 1 GM/100 ML BAG IV ONE (09:00)
--- NOTE | 2021-10-01 11:38 | Consultation Report ---
DATE OF SERVICE: 10/01/2021. REASON FOR CONSULTATION: Pancytopenia, on chemotherapy. HISTORY OF PRESENT ILLNESS: Ms. 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 Given serous carcinoma and risk for recurrence, she was started on adjuvant chemotherapy with carboplatin/paclitaxel on 08/29/2021 and received second cycle of treatment on 09/22/2021. Of note, between her first and second cycles of treatment, she was diagnosed to have COVID-19 infection during preoperative testing prior to MediPort placement. Since then, she has experienced multiple symptoms including fatigue, poor appetite, nausea and dizziness. This necessitated multiple infusion visits at the [facility] for IV fluid hydration. Despite this, she complained of persistent dizziness for which brain MRI was ordered as an outpatient, which was scheduled to be performed on 10/05/2021. She however continued to experience worsening dizziness and presented to the ER yesterday with complaints of fatigue, dizziness, diarrhea and generalized weakness. Labs obtained on admission were significant for chemotherapy-induced pancytopenia with white cell count of 1.24, ANC of 270, hemoglobin of 13.9, and platelet count of 86,000. She was also found to be slightly hypokalemic with potassium of 3.3. Imaging studies obtained on admission including CT abdomen and pelvis was negative. CT cervical spine revealed degenerative changes without evidence of acute bony injury. CTA performed on 09/30/2021 revealed patchy ground-glass opacities within both lungs, left greater than right characteristic of viral-type pneumonitis and probable early COVID-[address] head on 09/30/2021 was negative. MRI brain on 09/30/2021 also was negative for metastatic disease. She was started on IV fluids and placed on isolation for COVID-19 pneumonia. Stool studies were also performed to rule out Clostridium difficile. During my evaluation of the patient today, she complains of dizziness, shortness of breath, diarrhea. PAST MEDICAL HISTORY: Endometrial carcinoma. PAST SURGICAL HISTORY: History of hysterectomy/BSO. MEDICATIONS PRIOR TO ADMISSION: Zofran 8 mg p.o. q. 8 hours as needed, Compazine 10 mg p.o. q. 6 hours as needed. ALLERGIES: PENICILLINS. SOCIAL HISTORY: Denies smoking, alcohol and illicit drug use. FAMILY HISTORY: Nonsignificant. REVIEW OF SYSTEMS: CONSTITUTIONAL: Positive for fatigue. Negative for weight loss, night sweats or fever. EYES: Negative for change in vision. CARDIOVASCULAR: Negative for chest pain, palpitations, or diaphoresis. Positive for dizziness. RESPIRATORY: Positive for shortness of breath. No hemoptysis or cough. GASTROINTESTINAL: Positive for nausea and diarrhea. No abdominal pain, hematemesis, melena, vomiting, or dyspepsia. GENITOURINARY: Negative for urinary frequency, hematuria, or dysuria. NEUROLOGIC: Positive for weakness. No headaches. LYMPHATICS AND HEMATOLOGIC: Negative for abnormal bleeding or new adenopathy. PHYSICAL EXAMINATION: VITAL SIGNS: Blood pressure 113/71, heart rate 61, respiratory rate 20, temperature 36.6, oxygen saturation 95% on room air. EYES: Eyes are without conjunctival erythema or icterus. ENT: External examination was negative for masses. NECK: Negative for masses or palpable adenopathy. RESPIRATORY: Lung sounds were generally clear bilaterally. CARDIOVASCULAR: Heart was regular rate and rhythm without significant murmur, gallops, or rubs. GASTROINTESTINAL: No palpable hepatosplenomegaly. ABDOMEN: Soft with normal bowel sounds. LYMPHATIC SYSTEM: No palpable peripheral lymphadenopathy. EXTREMITIES: Negative for edema or erythema. LABORATORY DATA: CBC from 10/01/2021 revealed white count of 1.15, hemoglobin of 11.9, hematocrit of 35.8, platelet count of 75,000 with ANC of 80. IMAGING STUDIES: CT abdomen and pelvis on 09/30/2021, impression, no acute abnormalities and in particular no evidence of fracture. Cervical spine on ____, impression, degenerative changes without evidence of acute bony injury. CTA chest on 09/30/2021, impression, no CTA evidence of pulmonary embolus. Compared to chest radiograph, patchy ground-glass opacities are present within both lungs, left greater than right characteristic of viral-type pneumonitis and probable early COVID-[address] head on 09/30/2021, impression, no acute intracranial hemorrhage, no evidence of acute territorial infarction or other acute intracranial disease process. MRI brain on 09/30/2021, impression, no acute abnormalities in particular, no evidence of metastatic disease. IMPRESSION: 1. A very pleasant 71-year-old female with history of high-grade serous carcinoma of the endometrium, status post 2 cycles of carboplatin/paclitaxel. Suspect that her current admission is most likely due to recent COVID-19 pneumonia in addition to poorly tolerated chemotherapy treatment with carboplatin/paclitaxel. Agree with supportive care, agree with IV hydration. She would benefit from getting G-CSF with IV Zarxio 480 mcg x2-3 days or until ANC greater than 1000. Will plan to dose reduce subsequent cycles of carboplatin/paclitaxel as treatment has been overall poorly tolerated. 2. Chemotherapy-induced pancytopenia with severe neutropenia. 3. Dehydration. 4. COVID-19 pneumonia. 5. History of high-grade serous carcinoma of the endometrium, on adjuvant chemotherapy. PLAN: 1. Recommend starting Zarxio 480 mcg daily x2-3 days or until ANC greater than 1000. 2. Agree with IV hydration. 3. Will plan to dose reduce carboplatin/paclitaxel during remaining 4 cycles of chemotherapy. 4. Lomotil/imodium for diarrhea 5. Consider antibiotic coverage for possible CAP Thank you for this consult. Oncology will continue following the patient while in the hospital. Please feel free to call if you have any further questions. Job ID: [id number] [facility]
--- NOTE | 2021-10-01 11:44 | Hospitalist Progress Note ---
Date of Service October 01, 2021 Assessment & Plan (1) Syncope: Plan: -Etiology likely due to dehydration/orthostasis response in the setting of ongoing GI losses as well as patient's poor po intake the past week s/p chemo. Also have to consider the possibility of met dz to brain. MRI Brain negative Orthostatics remain positive despite IVF hydration through the night Tele with NSR only, no arrhythmias-doubt any arrhythmia as cause of syncope No murmur on exam Brain MRI neg for mets -continue LR IVF @ 80 cc/hr -continue lyte replacement -Check orthostatics again in the morning -remain on tele (2) Hypokalemia: Plan: -K+ and Mag remain low--> replace again today in the setting of ongoing GI losses. -Repeat BMP w/ Mg2+ in AM (3) Diarrhea: Plan: -Has been incredibly frequent since Sunday evening, 10 times a day at least, watery, nonbloody No abdominal pain. CT A/P negative -Stool PCR to include c-diff negative -start Imodium prn keep hydrated and replace lytes related to chemotherapy (4) Pancytopenia: Plan: Secondary to anti-neoplastic therapy -Patient with chills at home but no fever, but will treat with Levaquin now as below as per Oncology suggestion -continue neutropenic precautions -Appreciate Oncology consult -give Neupogen 480 mcq SQ daily x 2 doses -follow CBC transfusional support as needed (5) Shortness of breath: Plan: -Likely a side effect of her COVID PNA which she tested positive for on 09/13, still testing positive on admission. On RA. -nebs PRN. -CTA chest--> patchy groundglass opacities are present within both lungs, left greater than right characteristic of a viral type pneumonitis and probable early Covid 19 pneumonia. - isolation precautions can be discontinued as per Infection Control on 10/01 -Outside the window for any further treatment for Covid -treat with Levaquin 500mg po daily x 5 days for bronchitis given chills prior to admission and neutropenia at Oncology suggestion (6) Uterine cancer: Plan: -S/P lap hysterectomy in June 2021, undergoing chemotherapy--> 2nd cycle last , 09/22. -Patient with new onset dizziness for week or so-brain MRI neg for mets (7) COVID-19: Plan: as above (8) Pneumonia: Plan: as above Plan: Dispo-continued stay med/surg with tele. Discharge to home when orthostasis improved, lyte abnormalities improved, and diarrhea slows down. PT/OT ordered -SCDs and Lovenox for DVT ppx. -Full Code. Admission and Anticipated Discharge Date Admission Date: September 30, 2021 Subjective Feeling a little better. Still dizzy with standing and positive orthostatics. Had one loose stool so far this AM. No abd pain. Still with cough and some SOB. Discussed her care with Oncology who is inclined to treat empirically for bacterial bronchitis given recent COVID, neutropenia, and ongoing cough, CT chest findings and had subjective chills prior to admission but no objective fever. Tele with NSR rates 60s Review of Systems Review of Systems: All systems reviewed & are unremarkable except as noted in HPI & below Physical Exam Constitutional: WD/WN, vitals as above Eyes: + anicteric sclerae Neck: trachea midline, no thyromegaly Respiratory: normal respiratory effort and + cough Auscultation: + crackles (at lower and middle lung rodgers) Cardiovascular: RRR, no murmur, no edema Chest (Breasts): Chest: normal inspection of chest Gastrointestinal (Abdomen): normal bowel sounds, soft, nontender, no hepatosplenomegaly Musculoskeletal: Extremities: extremities normal to inspection; no cyanosis and no clubbing Skin: no rashes, warm and dry Neurologic: moves all extremities and awake; no focal motor deficits Psychiatric: A+Ox3, euthymic affect Lymphatic: no lymphedema Results & Data Results & Data ([facility]) Vital Signs (Past 12 Hours) Vital Signs Temp Pulse Pulse Resp BP Pulse Ox 10/01/21 07:22 63 10/01/21 03:55 36.6 C 63 20 113/71 95 Laboratory Results 10/01/21 10/01/21 09/30/21 Range/Units 07:14 07:14 23:15 WBC 1.15 L (4.8-10.8) K/uL RBC 3.92 L (4.2-5.4) M/uL Hgb 11.9 L (12.0-16.0) g/dL Hct 35.8 L (37-47) % MCV 91.3 (80-100) fL MCH 30.4 (25-34) pg MCHC 33.2 (32-36) g/dL RDW Std Deviation 46.9 H (36.4-46.3) fL RDW Coeff of Paul 14.2 (11.5-14.5) % Plt Count 75 L (130-400) K/uL MPV 12.3 H (7.4-10.4) fL Immature Gran % (Auto) 0.0 % Neut % (Auto) 6.8 % Lymph % (Auto) 75.7 % Oliver % (Auto) 15.7 % Eos % (Auto) 0.9 % Baso % (Auto) 0.9 % Neut # (Auto) 0.08 L* (1.4-6.5) K/uL Lymph # (Auto) 0.87 L (1.2-3.4) K/uL Oliver # (Auto) 0.18 (0.11-0.59) K/uL Eos # (Auto) 0.01 (0-0.5) K/uL Baso # (Auto) 0.01 (0-0.2) K/uL Immature Gran # (Auto) 0.00 (0.00-0.02) K/uL PT (9.0-12.0) Seconds INR (0.9-1.1) APTT (21.0-31.0) Seconds PTT Ratio Sodium 135 L (136-145) mmol/L Potassium 3.5 (3.5-5.1) mmol/L Chloride 106 (98-107) mmol/L Carbon Dioxide 23 (21-32) mmol/L Anion Gap 6 (3-11) BUN 19 (6-23) mg/dl Creatinine 0.57 L (0.6-1.2) mg/dl Est Cr Clr Drug Dosing 85.4 Est GFR ( Amer) 108.9 ml/min Est GFR (Non-Af Amer) 93.9 ml/min BUN/Creatinine Ratio 33.3 H (10-20) Glucose 75 (70-99(Fasting)) mg/dl Lactate (0.4-2.0) mmol/L Calcium 7.6 L (8.5-10.1) mg/dl Magnesium 1.8 (1.7-2.4) mg/dl Total Bilirubin (0.2-1.0) mg/dl AST (13-39) U/L ALT (7-52) U/L Alkaline Phosphatase (34-104) U/L Total Creatine Kinase (26-192) U/L Troponin I (0-0.04) ng/ml Total Protein (6.0-8.3) gm/dl Albumin (3.4-5.0) gm/dl Globulin (2.5-4.0) gm/dl Albumin/Globulin Ratio (0.9-2) Procalcitonin (0-0.5) ng/ml Urine Color Dark Yellow Urine Appearance Clear (Clear) Urine pH 5.0 (4.5-7.5) Ur Specific [place] > 1.045 H (1.000-1.030) Urine Protein Trace H (Negative) Urine Glucose (UA) Negative (Negative) Urine Ketones Negative (Negative) Urine Blood Trace H (Negative) Urine Nitrite Negative (Negative) Urine Bilirubin Negative (Negative) Urine Urobilinogen Negative (Negative) Ur Leukocyte Esterase Negative (Negative) Urine WBC (Auto) 10-30 H (0-5) /hpf Urine RBC (Auto) 10-30 H (0-4) /hpf U Hyaline Cast (Auto) 10-30 H (0-5) /lpf U Epithel Cells (Auto) >30 H (0-5) /lpf Urine Bacteria (Auto) Negative (Negative) Ur Renal Epithelial Cell Not Reportable Stl C. cayetanensis PCR (NotDetected) Stool Rotavirus A PCR (NotDetected) Stl Adenov F 40/41 PCR (NotDetected) Stool Astrovirus (PCR) (NotDetected) Stool Campylobacter PCR (NotDetected) Stl C. diff Tox A/B PCR (NotDetected) Stool Cryptosporidium PCR (NotDetected) Stl E.coli Shiga Tox PCR (NotDetected) Stl Enterotoxigenic E PCR (NotDetected) Stool EPEC (PCR) (NotDetected) Stool EAEC (PCR) (NotDetected) Stl E. histolytica PCR (NotDetected) Stool Giardia Lamblia PCR (NotDetected) Stool Salmonella PCR (NotDetected) Stool Sapovirus (PCR) (NotDetected) Stl P. shigelloides PCR (NotDetected) Stl Shigella/EIEC PCR (NotDetected) St Y.enterocolitica PCR (NotDetected) Stool Vibrio (PCR) (NotDetected) Stl Vibrio cholerae PCR (NotDetected) Stl Norovirus GI/GII PCR (NotDetected) SARS-CoV-2, RNA, NAAT (NEGATIVE) 09/30/21 09/30/21 09/30/21 Range/Units 23:15 13:05 12:54 WBC (4.8-10.8) K/uL RBC (4.2-5.4) M/uL Hgb (12.0-16.0) g/dL Hct (37-47) % MCV (80-100) fL MCH (25-34) pg MCHC (32-36) g/dL RDW Std Deviation (36.4-46.3) fL RDW Coeff of Paul (11.5-14.5) % Plt Count (130-400) K/uL MPV (7.4-10.4) fL Immature Gran % (Auto) % Neut % (Auto) % Lymph % (Auto) % Oliver % (Auto) % Eos % (Auto) % Baso % (Auto) % Neut # (Auto) (1.4-6.5) K/uL Lymph # (Auto) (1.2-3.4) K/uL Oliver # (Auto) (0.11-0.59) K/uL Eos # (Auto) (0-0.5) K/uL Baso # (Auto) (0-0.2) K/uL Immature Gran # (Auto) (0.00-0.02) K/uL PT (9.0-12.0) Seconds INR (0.9-1.1) APTT (21.0-31.0) Seconds PTT Ratio Sodium (136-145) mmol/L Potassium (3.5-5.1) mmol/L Chloride (98-107) mmol/L Carbon Dioxide (21-32) mmol/L Anion Gap (3-11) BUN (6-23) mg/dl Creatinine (0.6-1.2) mg/dl Est Cr Clr Drug Dosing Est GFR ( Amer) ml/min Est GFR (Non-Af Amer) ml/min BUN/Creatinine Ratio (10-20) Glucose (70-99(Fasting)) mg/dl Lactate (0.4-2.0) mmol/L Calcium (8.5-10.1) mg/dl Magnesium (1.7-2.4) mg/dl Total Bilirubin (0.2-1.0) mg/dl AST (13-39) U/L ALT (7-52) U/L Alkaline Phosphatase (34-104) U/L Total Creatine Kinase 119 (26-192) U/L Troponin I (0-0.04) ng/ml Total Protein (6.0-8.3) gm/dl Albumin (3.4-5.0) gm/dl Globulin (2.5-4.0) gm/dl Albumin/Globulin Ratio (0.9-2) Procalcitonin (0-0.5) ng/ml Urine Color Urine Appearance (Clear) Urine pH (4.5-7.5) Ur Specific [place] (1.000-1.030) Urine Protein (Negative) Urine Glucose (UA) (Negative) Urine Ketones (Negative) Urine Blood (Negative) Urine Nitrite (Negative) Urine Bilirubin (Negative) Urine Urobilinogen (Negative) Ur Leukocyte Esterase (Negative) Urine WBC (Auto) (0-5) /hpf Urine RBC (Auto) (0-4) /hpf U Hyaline Cast (Auto) (0-5) /lpf U Epithel Cells (Auto) (0-5) /lpf Urine Bacteria (Auto) (Negative) Ur Renal Epithelial Cell Stl C. cayetanensis PCR Not Detected (NotDetected) Stool Rotavirus A PCR Not Detected (NotDetected) Stl Adenov F 40/41 PCR Not Detected (NotDetected) Stool Astrovirus (PCR) Not Detected (NotDetected) Stool Campylobacter PCR Not Detected (NotDetected) Stl C. diff Tox A/B PCR Not Detected (NotDetected) Stool Cryptosporidium PCR Not Detected (NotDetected) Stl E.coli Shiga Tox PCR Not Detected (NotDetected) Stl Enterotoxigenic E PCR Not Detected (NotDetected) Stool EPEC (PCR) Not Detected (NotDetected) Stool EAEC (PCR) Not Detected (NotDetected) Stl E. histolytica PCR Not Detected (NotDetected) Stool Giardia Lamblia PCR Not Detected (NotDetected) Stool Salmonella PCR Not Detected (NotDetected) Stool Sapovirus (PCR) Not Detected (NotDetected) Stl P. shigelloides PCR Not Detected (NotDetected) Stl Shigella/EIEC PCR Not Detected (NotDetected) St Y.enterocolitica PCR Not Detected (NotDetected) Stool Vibrio (PCR) Not Detected (NotDetected) Stl Vibrio cholerae PCR Not Detected (NotDetected) Stl Norovirus GI/GII PCR Not Detected (NotDetected) SARS-CoV-2, RNA, NAAT POSITIVE A* (NEGATIVE) 09/30/21 09/30/21 09/30/21 Range/Units 12:54 12:54 12:54 WBC (4.8-10.8) K/uL RBC (4.2-5.4) M/uL Hgb (12.0-16.0) g/dL Hct (37-47) % MCV (80-100) fL MCH (25-34) pg MCHC (32-36) g/dL RDW Std Deviation (36.4-46.3) fL RDW Coeff of Paul (11.5-14.5) % Plt Count (130-400) K/uL MPV (7.4-10.4) fL Immature Gran % (Auto) % Neut % (Auto) % Lymph % (Auto) % Oliver % (Auto) % Eos % (Auto) % Baso % (Auto) % Neut # (Auto) (1.4-6.5) K/uL Lymph # (Auto) (1.2-3.4) K/uL Oliver # (Auto) (0.11-0.59) K/uL Eos # (Auto) (0-0.5) K/uL Baso # (Auto) (0-0.2) K/uL Immature Gran # (Auto) (0.00-0.02) K/uL PT 10.9 (9.0-12.0) Seconds INR 1.0 (0.9-1.1) APTT 27.0 (21.0-31.0) Seconds PTT Ratio 1.0 Sodium (136-145) mmol/L Potassium (3.5-5.1) mmol/L Chloride (98-107) mmol/L Carbon Dioxide (21-32) mmol/L Anion Gap (3-11) BUN (6-23) mg/dl Creatinine (0.6-1.2) mg/dl Est Cr Clr Drug Dosing Est GFR ( Amer) ml/min Est GFR (Non-Af Amer) ml/min BUN/Creatinine Ratio (10-20) Glucose (70-99(Fasting)) mg/dl Lactate 1.1 (0.4-2.0) mmol/L Calcium (8.5-10.1) mg/dl Magnesium (1.7-2.4) mg/dl Total Bilirubin (0.2-1.0) mg/dl AST (13-39) U/L ALT (7-52) U/L Alkaline Phosphatase (34-104) U/L Total Creatine Kinase (26-192) U/L Troponin I (0-0.04) ng/ml Total Protein (6.0-8.3) gm/dl Albumin (3.4-5.0) gm/dl Globulin (2.5-4.0) gm/dl Albumin/Globulin Ratio (0.9-2) Procalcitonin 0.06 (0-0.5) ng/ml Urine Color Urine Appearance (Clear) Urine pH (4.5-7.5) Ur Specific [place] (1.000-1.030) Urine Protein (Negative) Urine Glucose (UA) (Negative) Urine Ketones (Negative) Urine Blood (Negative) Urine Nitrite (Negative) Urine Bilirubin (Negative) Urine Urobilinogen (Negative) Ur Leukocyte Esterase (Negative) Urine WBC (Auto) (0-5) /hpf Urine RBC (Auto) (0-4) /hpf U Hyaline Cast (Auto) (0-5) /lpf U Epithel Cells (Auto) (0-5) /lpf Urine Bacteria (Auto) (Negative) Ur Renal Epithelial Cell Stl C. cayetanensis PCR (NotDetected) Stool Rotavirus A PCR (NotDetected) Stl Adenov F 40/41 PCR (NotDetected) Stool Astrovirus (PCR) (NotDetected) Stool Campylobacter PCR (NotDetected) Stl C. diff Tox A/B PCR (NotDetected) Stool Cryptosporidium PCR (NotDetected) Stl E.coli Shiga Tox PCR (NotDetected) Stl Enterotoxigenic E PCR (NotDetected) Stool EPEC (PCR) (NotDetected) Stool EAEC (PCR) (NotDetected) Stl E. histolytica PCR (NotDetected) Stool Giardia Lamblia PCR (NotDetected) Stool Salmonella PCR (NotDetected) Stool Sapovirus (PCR) (NotDetected) Stl P. shigelloides PCR (NotDetected) Stl Shigella/EIEC PCR (NotDetected) St Y.enterocolitica PCR (NotDetected) Stool Vibrio (PCR) (NotDetected) Stl Vibrio cholerae PCR (NotDetected) Stl Norovirus GI/GII PCR (NotDetected) SARS-CoV-2, RNA, NAAT (NEGATIVE) 09/30/21 09/30/21 Range/Units 12:54 12:54 WBC 1.24 L (4.8-10.8) K/uL RBC 4.45 (4.2-5.4) M/uL Hgb 13.9 (12.0-16.0) g/dL Hct 39.8 (37-47) % MCV 89.4 (80-100) fL MCH 31.2 (25-34) pg MCHC 34.9 (32-36) g/dL RDW Std Deviation 45.8 (36.4-46.3) fL RDW Coeff of Paul 13.9 (11.5-14.5) % Plt Count 86 L (130-400) K/uL MPV 12.4 H (7.4-10.4) fL Immature Gran % (Auto) 0.8 % Neut % (Auto) 21.8 % Lymph % (Auto) 64.5 % Oliver % (Auto) 12.1 % Eos % (Auto) 0.0 % Baso % (Auto) 0.8 % Neut # (Auto) 0.27 L* (1.4-6.5) K/uL Lymph # (Auto) 0.80 L (1.2-3.4) K/uL Oliver # (Auto) 0.15 (0.11-0.59) K/uL Eos # (Auto) 0.00 (0-0.5) K/uL Baso # (Auto) 0.01 (0-0.2) K/uL Immature Gran # (Auto) 0.01 (0.00-0.02) K/uL PT (9.0-12.0) Seconds INR (0.9-1.1) APTT (21.0-31.0) Seconds PTT Ratio Sodium 134 L (136-145) mmol/L Potassium 3.3 L (3.5-5.1) mmol/L Chloride 102 (98-107) mmol/L Carbon Dioxide 23 (21-32) mmol/L Anion Gap 9 (3-11) BUN 24 H (6-23) mg/dl Creatinine 0.77 (0.6-1.2) mg/dl Est Cr Clr Drug Dosing Not Reportable Est GFR ( Amer) 90.7 ml/min Est GFR (Non-Af Amer) 78.2 ml/min BUN/Creatinine Ratio 31.2 H (10-20) Glucose 108 H (70-99(Fasting)) mg/dl Lactate (0.4-2.0) mmol/L Calcium 8.8 (8.5-10.1) mg/dl Magnesium 1.7 (1.7-2.4) mg/dl Total Bilirubin 0.6 (0.2-1.0) mg/dl AST 33 (13-39) U/L ALT 64 H (7-52) U/L Alkaline Phosphatase 69 (34-104) U/L Total Creatine Kinase (26-192) U/L Troponin I < 0.03 (0-0.04) ng/ml Total Protein 6.8 (6.0-8.3) gm/dl Albumin 3.5 (3.4-5.0) gm/dl Globulin 3.3 (2.5-4.0) gm/dl Albumin/Globulin Ratio 1.1 (0.9-2) Procalcitonin (0-0.5) ng/ml Urine Color Urine Appearance (Clear) Urine pH (4.5-7.5) Ur Specific [place] (1.000-1.030) Urine Protein (Negative) Urine Glucose (UA) (Negative) Urine Ketones (Negative) Urine Blood (Negative) Urine Nitrite (Negative) Urine Bilirubin (Negative) Urine Urobilinogen (Negative) Ur Leukocyte Esterase (Negative) Urine WBC (Auto) (0-5) /hpf Urine RBC (Auto) (0-4) /hpf U Hyaline Cast (Auto) (0-5) /lpf U Epithel Cells (Auto) (0-5) /lpf Urine Bacteria (Auto) (Negative) Ur Renal Epithelial Cell Stl C. cayetanensis PCR (NotDetected) Stool Rotavirus A PCR (NotDetected) Stl Adenov F 40/41 PCR (NotDetected) Stool Astrovirus (PCR) (NotDetected) Stool Campylobacter PCR (NotDetected) Stl C. diff Tox A/B PCR (NotDetected) Stool Cryptosporidium PCR (NotDetected) Stl E.coli Shiga Tox PCR (NotDetected) Stl Enterotoxigenic E PCR (NotDetected) Stool EPEC (PCR) (NotDetected) Stool EAEC (PCR) (NotDetected) Stl E. histolytica PCR (NotDetected) Stool Giardia Lamblia PCR (NotDetected) Stool Salmonella PCR (NotDetected) Stool Sapovirus (PCR) (NotDetected) Stl P. shigelloides PCR (NotDetected) Stl Shigella/EIEC PCR (NotDetected) St Y.enterocolitica PCR (NotDetected) Stool Vibrio (PCR) (NotDetected) Stl Vibrio cholerae PCR (NotDetected) Stl Norovirus GI/GII PCR (NotDetected) SARS-CoV-2, RNA, NAAT (NEGATIVE) PG Care Time/CCT Total # of Minutes Spent Total Time Spent with Patient: Total time spent is greater than 50% in coordination of care (as documented) at patient's floor/unit and/or counseling patient: Coding Level of Care Code 21188 Subseq Hosp Care Lvl 3 Diagnoses Syncope R55 Syncope type: unspecified Hypokalemia E87.6 Diarrhea R19.7 Pancytopenia D61.818 Shortness of breath R06.02 Uterine cancer C55 Malignant neoplasm of uterus location: unspecified site of uterus COVID-19 U07.1 Pneumonia J18.9 (1) Syncope Syncope type: unspecified Qualified Code(s): R55 - Syncope and collapse (2) Uterine cancer Malignant neoplasm of uterus location: unspecified site of uterus Qualified Code(s): C55 - Malignant neoplasm of uterus, part unspecified
[2021-10-01] MEDS ORDERED: LOPERAMIDE HCL 2 MG CAP PO STA (11:46)
[2021-10-01] MEDS: levoFLOXacin 500 MG TAB PO SCH (12:41)
[2021-10-01] MEDS: FILGRASTIM 480 MCG/1.6 ML VIAL SQ SCH (12:42)
[2021-10-01] MEDS ORDERED: LOPERAMIDE HCL 2 MG CAP PO PRN (18:00)
[2021-10-01] MEDS: ENOXAPARIN INJ 40 MG/0.4 ML SYR SQ SCH (21:59)
[2021-10-02 07:13] LABS: Hematocrit (blood only) 33.1 % (37-47); Hemoglobin 11.2 g/dL (12.0-16.0); Mean Corpuscular Hemoglobin 30.9 pg (25-34); Mean Corpuscular Hgb Conc 33.8 g/dL (32-36); Mean Corpuscular Volume 91.2 fL (80-100); RDW Coefficient of Variation 13.8 % (11.5-14.5); RDW Standard Deviation 46.1 fL (36.4-46.3); Red Blood Count 3.63 M/uL (4.2-5.4); White Blood Count 1.52 K/uL (4.8-10.8)
[2021-10-02 07:14] LABS: Mean Platelet Volume 11.9 fL (7.4-10.4); Platelet Count 63 K/uL (130-400)
[2021-10-02 07:36] LABS: Calcium 7.6 mg/dl (8.5-10.1); Creatinine Clr Calc Pharmacy 76.3 ml/min; Est GFR (African American) 105.3 ml/min; Est GFR (Non-African American) 90.9 ml/min; Magnesium 1.8 mg/dl (1.7-2.4); Potassium 3.9 mmol/L (3.5-5.1)
[2021-10-02 08:15] LABS: Eosinophils # (auto) 0.01 K/uL (0-0.5); Eosinophils % (auto) 0.7 %; Immature Granulocytes # (auto) 0.01 K/uL (0.00-0.02); Immature Granulocytes % (auto) 0.7 %; Lymphocytes # (auto) 0.93 K/uL (1.2-3.4); Lymphocytes % (auto) 61.2 %; Monocytes # (auto) 0.35 K/uL (0.11-0.59); Neutrophils # (auto) 0.22 K/uL (1.4-6.5); Neutrophils % (auto) 14.4 %
[2021-10-02] MEDS: LACTATED RINGER'S 1,000 ML IV SCH ×2 (08:53→21:35)
[2021-10-02] MEDS: levoFLOXacin 500 MG TAB PO SCH (11:14)
[2021-10-02] MEDS: FILGRASTIM 480 MCG/1.6 ML VIAL SQ SCH (11:15)
[2021-10-02] MEDS: SODIUM CHLORIDE 0.65% NA SOLN 45 ML (OCEAN) SCH ×2 (11:38→21:36)
--- NOTE | 2021-10-02 21:07 | Hospitalist Progress Note ---
Date of Service October 02, 2021 Assessment & Plan (1) Syncope: Plan: -Etiology likely due to dehydration/orthostasis response in the setting of ongoing GI losses as well as patient's poor po intake the past week s/p chemo. Also have to consider the possibility of met dz to brain. MRI Brain negative for mets, acute findings. Orthostatics appears to be improving. Today on 10/02, SBP did not change by more than 20 mmHg. Tele with NSR only, no arrhythmias-doubt any arrhythmia as cause of syncope No murmur on exam -continue LR IVF @ 80 cc/hr -informed nurse to check q shift. If she continues to improve, possible discharge tomorrow. -However, will prefer improvement in her blood count too. -remain on tele (2) Hypokalemia: Plan: -K+ and Mag improved in the setting of ongoing GI losses. -Repeat BMP w/ Mg2+ in AM (3) Diarrhea: Plan: -Has been incredibly frequent since Sunday evening, 10 times a day at least, watery, nonbloody No abdominal pain. CT A/P negative -Stool PCR to include c-diff negative -start Imodium prn keep hydrated and replace lytes related to chemotherapy (4) Pancytopenia: Plan: Secondary to anti-neoplastic therapy -Patient with chills at home but no fever, but will treat with Levaquin now as below as per Oncology suggestion -continue neutropenic precautions -Appreciate Oncology consult -give Neupogen 480 mcq SQ daily x 3 doses -repeat 3rd dose tomorrow -follow CBC transfusional support as needed (5) Shortness of breath: Plan: -Likely a side effect of her COVID PNA which she tested positive for on 09/13, still testing positive on admission. On RA. -nebs PRN. -CTA chest--> patchy groundglass opacities are present within both lungs, left greater than right characteristic of a viral type pneumonitis and probable early Covid 19 pneumonia. - isolation precautions can be discontinued as per Infection Control on 10/01 -Outside the window for any further treatment for Covid -treat with Levaquin 500mg po daily x 5 days for bronchitis given chills prior to admission and neutropenia at Oncology suggestion (6) Uterine cancer: Plan: -S/P lap hysterectomy in June 2021, undergoing chemotherapy--> 2nd cycle last , 09/22. -Patient with new onset dizziness for week or so-brain MRI neg for mets (7) COVID-19: Plan: as above (8) Pneumonia: Plan: as above Plan: Dispo-continued stay med/surg with tele. Discharge to home when orthostasis improved, lyte abnormalities improved, and diarrhea slows down. PT/OT ordered -SCDs and Lovenox for DVT ppx. -Full Code. Admission and Anticipated Discharge Date Admission Date: September 30, 2021 Subjective Patient reports feeling much better. She is no longer dizzy today. She felt well when she stood up from a lying position. Orthostatic vitals were obtained. Review of Systems Review of Systems: All systems reviewed & are unremarkable except as noted in HPI & below Physical Exam Constitutional: WD/WN, vitals as above Eyes: + anicteric sclerae Neck: trachea midline, no thyromegaly Respiratory: normal respiratory effort and + cough Auscultation: + crackles (at lower and middle lung rodgers) Cardiovascular: RRR, no murmur, no edema Chest (Breasts): Chest: normal inspection of chest Gastrointestinal (Abdomen): normal bowel sounds, soft, nontender, no hepatosplenomegaly Musculoskeletal: Extremities: extremities normal to inspection; no cyanosis and no clubbing Skin: no rashes, warm and dry Neurologic: moves all extremities and awake; no focal motor deficits Psychiatric: A+Ox3, euthymic affect Lymphatic: no lymphedema Results & Data Results & Data ([facility]) Vital Signs (Past 12 Hours) Vital Signs Temp Pulse Pulse Resp BP Pulse Ox 10/02/21 19:14 36.8 C 18 95 10/02/21 15:48 65 10/02/21 15:19 36.8 C 74 18 122/68 94 10/02/21 11:04 37.0 C 87 16 95 PG Care Time/CCT Total # of Minutes Spent Total Time Spent with Patient: Total time spent is greater than 50% in coordination of care (as documented) at patient's floor/unit and/or counseling patient: Coding Level of Care Code 03530 Subseq Hosp Care Lvl 2 Diagnoses Syncope R55 Syncope type: unspecified Hypokalemia E87.6 Diarrhea R19.7 Pancytopenia D61.818 Shortness of breath R06.02 Uterine cancer C55 Malignant neoplasm of uterus location: unspecified site of uterus COVID-19 U07.1 Pneumonia J18.9 (1) Syncope Syncope type: unspecified Qualified Code(s): R55 - Syncope and collapse (2) Uterine cancer Malignant neoplasm of uterus location: unspecified site of uterus Qualified Code(s): C55 - Malignant neoplasm of uterus, part unspecified
[2021-10-02] MEDS: ENOXAPARIN INJ 40 MG/0.4 ML SYR SQ SCH (21:41)
[2021-10-03 08:24] LABS: Hematocrit (blood only) 34.3 % (37-47); Hemoglobin 11.7 g/dL (12.0-16.0); Mean Corpuscular Hgb Conc 34.1 g/dL (32-36); Mean Corpuscular Volume 90.7 fL (80-100); RDW Coefficient of Variation 13.8 % (11.5-14.5); RDW Standard Deviation 45.7 fL (36.4-46.3); Red Blood Count 3.78 M/uL (4.2-5.4); White Blood Count 5.95 K/uL (4.8-10.8)
[2021-10-03 08:46] LABS: Mean Platelet Volume 11.6 fL (7.4-10.4); Platelet Count 63 K/uL (130-400)
[2021-10-03] MEDS: SODIUM CHLORIDE 0.65% NA SOLN 45 ML (OCEAN) SCH (08:48)
[2021-10-03 08:50] LABS: BUN Creatinine Ratio 13.8 (10-20); Calcium 7.8 mg/dl (8.5-10.1); Creatinine Clr Calc Pharmacy 84.2 ml/min; Est GFR (African American) 108.2 ml/min; Est GFR (Non-African American) 93.4 ml/min; Magnesium 1.6 mg/dl (1.7-2.4); Potassium 3.9 mmol/L (3.5-5.1)
[2021-10-03] MEDS: LACTATED RINGER'S 1,000 ML IV SCH (10:02)
[2021-10-03] MEDS: MAGNESIUM SULFATE / D5W 1 GM/100 ML BAG IV SCH ×2 (10:18→12:33)
[2021-10-03] MEDS: levoFLOXacin 500 MG TAB PO SCH (11:14)
[2021-10-03 11:22] LABS: ALC (manual) 1.76 K/uL (1.2-3.4); ANC (manual) 3.83 K/uL (1.4-6.5); Lymphocytes # (manual) 1.76 K/uL (1.2-3.4); Lymphocytes % (manual) 29.6 %; Metamyelocytes % (manual) 1.7 %; Monocytes # (manual) 0.26 K/uL (0.11-0.59); Monocytes % (manual) 4.3 %; Neutrophils # (manual) 3.83 K/uL (1.4-6.5); Neutrophils % (manual) 64.4 %
--- NOTE | 2021-10-03 12:35 | Discharge Summary ---
Date of Service October 03, 2021 Admission HPI Per Admitting Provider Patient is 71-year-old previously healthy female diagnosed with uterine cancer in June 2021 and COVID in August 2021 who presents today with complaints of generalized weakness. Patient has had 2 cycles of chemotherapy so far, most recently had second round last . Since then she has developed fatigue, generalized weakness, dizziness. She is not nauseous or vomiting, however reports she does not have an appetite so she is struggling to keep up with p.o. intake. Additionally, she has felt "winded ", she is becoming out of breath with daily activities of living, daughter is had to help dress her on several occasions due to weakness and shortness of breath. Most recently, on Sunday evening she developed diarrhea that has been frequent since then. She does not note blood in it, states it looks dark yellow/orange. She has not taken anything for alleviation. Last night, patient had 2 unwitnessed syncopal episodes while she was in her bathroom. Denies hitting her head, but does not remember events leading up to or during fall. Daughter reports taking orthostatic VS at home, states BP did drop a decent bit upon standing. Denies chest pain, palpitations, cough, nausea, vomiting, constipation, melena, hematochezia, focal weakness, increased urinary frequency urgency, dysuria, hematuria.She has started going to the cancer care center for IVF and potassium supplementation. Principal Diagnosis Syncope secondary to orthostasis, dehydration, diarrhea, pancytopenia, pneumonia Discharge Exam Constitutional WD/WN, vitals as above Eyes + anicteric sclerae Neck trachea midline, no thyromegaly Respiratory normal respiratory effort; no cough Auscultation: + crackles (at lower and middle lung rodgers) Cardiovascular RRR, no murmur, no edema Chest (Breasts) Chest: normal inspection of chest Gastrointestinal (Abdomen) normal bowel sounds, soft, nontender, no hepatosplenomegaly Musculoskeletal Extremities: extremities normal to inspection; no cyanosis and no clubbing Skin no rashes, warm and dry Neurologic moves all extremities and awake; no focal motor deficits Psychiatric A+Ox3, euthymic affect Lymphatic no lymphedema Discharge Data Allergies Allergy/AdvReac Type Severity Reaction Status Date / Time Penicillins Allergy Intermediate Hives Verified 09/30/21 15:48 Consultations 09/30/21 15:31 ED Decision to Admit Stat 09/30/21 20:57 Consult Oncology Routine Ordered Studies 09/30/21 12:50 CT abd pelvis IV con only Stat CT angio chest PE protocol Stat CT cervical spine wo con Stat CT head/brain wo con Stat 09/30/21 20:57 MR brain wo/w con Routine Hospital Course (1) Syncope: -Etiology likely due to dehydration/orthostasis response in the setting of ongoing GI losses as well as patient's poor po intake the past week s/p chemo. Also have to consider the possibility of met dz to brain. MRI Brain negative for mets, acute findings. Orthostatics initially positive and now negative after several days of IVF hydration, resolution of diarrhea Tele with NSR only, no arrhythmias-doubt any arrhythmia as cause of syncope No murmur on exam No longer lightheaded with standing, is ambulating independently (2) Hypokalemia: in the setting of ongoing GI losses. replaced and improved magnesium replaced as well (3) Diarrhea: -Has been incredibly frequent since Sunday evening, 10 times a day at least, watery, nonbloody No abdominal pain. CT A/P negative -Stool PCR to include c-diff negative -started Imodium prn and now much improved related to chemotherapy (4) Pancytopenia: Secondary to anti-neoplastic therapy -Patient with chills at home but no fever, but treating with Levaquin now as below as per Oncology suggestion for bacterial PNA -continue neutropenic precautions -Appreciate Oncology consult -gave Neupogen 480 mcq SQ daily x 3 doses -WBC count up to 5, plts stable at 63, and hgb up to 11.7 on day of discharge no transfusions needed -follow CBC with Oncology (5) Shortness of breath: -Likely a side effect of her COVID PNA which she tested positive for on 09/13, still testing positive on admission. On RA. -nebs PRN. -CTA chest--> patchy groundglass opacities are present within both lungs, left greater than right characteristic of a viral type pneumonitis and probable early Covid 19 pneumonia. -Outside the window for any further treatment for Covid -treat with Levaquin 500mg po daily x 5 days for bronchitis given chills prior to admission and neutropenia at Oncology suggestion repeat Chest CT in a few weeks to ensure resolution of ground glass opacities still has crackles bilaterally on physical exam but clinically much improved not on O2 (6) Uterine cancer: -S/P lap hysterectomy in June 2021, undergoing chemotherapy--> 2nd cycle last , 09/22. -Patient with new onset dizziness for week or so-brain MRI neg for mets (7) COVID-19: as above (8) Pneumonia: as above Dispo-dc to home -SCDs and Lovenox for DVT ppx. -Full Code. Total Time Total Time Spent Total Time Spent (In Minutes): 40 min Discharge Plan Discharge Items Patient Disposition: Home - Self-Care Reason For Visit: GENERALIZED WEAKNESS Discharge Diagnosis: Orthostatic hypotension, syncope, dehydration, Pneumonia Condition on Discharge: Fair Activity: As commented below Lifting: Gradually increase as tolerated Bathing: No limitations Exercise/Sports: Gradually increase as tolerated Weightbearing: Full weightbearing Non-emergency contact: Primary Care Provider and Oncologist Call non-emergency contact if: you have any medication questions, your symptoms worsen and you have a fever Follow-up/Referrals: Renan Reyes MD [Primary Care Provider] - (Follow up within 1-2 weeks.) Diet: Regular Addtl Attending Provider Instructions: Please continue imodium as needed for diarrhea. Take 2 more days of the antibiotic for pneumonia called levofloxacin. Drink plenty of fluids. You should have a repeat CT scan of your chest in a few weeks or so to follow up on your pneumonia. This can be done in conjunction with the CT scans for your cancer surveillance. Pending Studies at Discharge: Yes (Final blood cultures-no growth to date) Stand-Alone Forms: My [facility] Medications and DC Order Prescriptions: New acetaminophen 325 mg Tablet 650 mg PO Q4H PRN (Reason: pain) Qty: 30 RF: 0 levofloxacin 500 mg Tablet 500 mg PO DAILY@1100 Qty: 2 RF: 0 loperamide 2 mg Capsule 2 mg PO Q6 PRN (Reason: loose stool) Qty: 10 RF: 0 Continued ondansetron HCl 8 mg tablet 8 mg PO Q8H PRN (Reason: NAUSEA/VOMITING) RF: 0 prochlorperazine maleate 10 mg tablet 10 mg PO Q6H PRN (Reason: NAUSEA/VOMITING) RF: 0 Discontinued ibuprofen 600 mg tablet 600 mg PO DIRECTED PRN (Reason: Pain) RF: 0 Discharge Orders: Discharge Order (Routine); Ordered 10/03/21 Ordered By: Cori Moyer Admission Data Admit Date/Time: 09/30/21 18:59 Attending Provider: Cori Moyer Admit Provider: Cori Moyer Primary Care Provider: Renan Reyes Other Providers: Cori Moyer ; Joanna Ko Coding Level of Care Code D/C DAY MANAGEMENT >30 MINS Diagnoses Syncope R55 Syncope type: unspecified Hypokalemia E87.6 Diarrhea R19.7 Pancytopenia D61.818 Shortness of breath R06.02 Uterine cancer C55 Malignant neoplasm of uterus location: unspecified site of uterus COVID-19 U07.1 Pneumonia J18.9
[2021-10-04] MEDS ORDERED: FILGRASTIM 480 MCG/1.6 ML VIAL SQ ONE (13:00)
== END 2021-10-03 16:31 | disposition home or self-care (01) ==
LOC: ED 12:20 → 2N 18:59 → INTOOBSV 18:59 → SUATTDRO 18:59 → 2N 20:28

== ENCOUNTER 2024-08-25 10:55 | Inpatient (IN) ==
--- NOTE | 2024-07-11 11:51 | PAT Medication Instructions ---
Medication Instructions Date of Service July 11, 2024 Home Medications acetaminophen 500 mg capsule 1,000 mg PO Q8 PRN Pain gabapentin 300 mg capsule 300 mg PO TID MEDICATION INSTRUCTIONS: Take morning of surgery With a small sip of water, OTHERWISE NOTHING TO EAT OR DRINK AFTER MIDNIGHT: acetaminophen 500 mg capsule 1,000 mg PO Q8 PRN Pain gabapentin 300 mg capsule 300 mg PO TID Take evening before surgery acetaminophen 500 mg capsule 1,000 mg PO Q8 PRN Pain gabapentin 300 mg capsule 300 mg PO TID Other Notes If you have any questions please call us at [phone] or [phone] or [phone] or [phone]
--- NOTE | 2024-07-21 10:52 | Anesthesiology Consultation ---
Date of Service July 21, 2024 Assessment & Plan (1) Encounter for pre-operative examination: - awaiting surgeon ordered [place] PCP pre-operative evaluation 08/04/24. Chart Review Chart Review: Pending: Refer to Additional Notes / Consult section and Patient seen in Pre Admission Testing Teaching & Discussion Pre-Anesthesia Teaching/Discussion Notes: Instructed NPO after midnight before surgery, except medications with 15 cc of water. Medication instructions provided according to the PAT guidelines. History Surgery Operation Date: 08/22/24 07:45 Proposed Procedures p L2-S1 Decompression and Fusion, Spinal Cord Monitoring - Anthony Banda DO Height/Weight Height: 5 ft 1.5 in Weight: 80.7 kg Allergies Allergy/AdvReac Type Severity Reaction Status Date / Time Penicillins Allergy Intermediate Hives Verified 07/10/24 14:56 Medications Home Medications Medication Instructions Recorded Confirmed Last Taken acetaminophen 500 mg capsule 1,000 mg PO Q8 PRN Pain 05/28/24 07/10/24 Unknown gabapentin 300 mg capsule 300 mg PO TID 07/10/24 07/10/24 Unknown Past Medical History Medical History (Updated 07/21/24 @ 11:09 by Julisa Kruger PA-C) Chronic back pain Elevated ferritin evaluated by heme/onc, per patient did not require additional evaluation/monitoring History of chemotherapy 08/29/21-01/23/22 History of COVID-19 (~2021) 08/2021 and again in september 2021 - tested positive prior to a surgery, no symptoms. History of endometrial cancer Papillary serous adenocarcinoma dx 02/2021 - surgery 06/2021 + chemo 06/07/21 endometrial bx h/o chemo 08/29/21-01/23/22 History of herniated intervertebral disc History of pancytopenia Hx pulmonary embolism (~2021) left lung (~2021) during chemotherapy treatments - unknown cause. treated with anticoagulants. no longer needs and no further issues. 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 Exercise / Class Metabolic Activity II 4-5 Yardwork/Stairs/Walk up hill (denies chest discomfort or shortness of breath with one flight of stairs) Past Family History Family History Father , in his 70s Lung cancer Mother , in her 80s Diabetes Coronary heart disease Hypertension Sister Diabetes Hypertension Brother ALS (amyotrophic lateral sclerosis) Sister Diabetes Hypertension Dialysis patient Sister No problems noted. Brother Myocardial infarction Brother Diabetes Daughter No problems noted. Son Diabetes Hypertension Heart disease Other No family history of adverse response to anesthesia Denies family history of Ovarian cancer Prostate cancer Breast cancer Colorectal cancer Past Surgical History Surgical History H/O colonoscopy History of cataract surgery Bilateral History of hysterectomy for cancer TLH-BSO with lymph node biopsy on 07/19/22 History of tooth extraction all teeth removed History of tubal ligation S/P epidural steroid injection Past Anesthesia History No Hx of Anesthesia Complications and No Family Hx of Anesthesia Complications History of PONV No Hx of PONV and No Hx of Motion Sickness Social History Smoking Status: Former smoker Smoking cigarettes per day: 3-4 Do You Dip or Chew Tobacco: No Smoking End Date: quit many years ago ~45 years ago Hx Alcohol Use: Yes Alcohol type: wine and hard liquor alcohol intake frequency: holidays/special occasions only Hx Substance Use: No substance use type: does not use Review of Systems Patient states that several months ago stopped taking ibuprofen regularly (states following guidelines) due to heartburn after taking medication at night. States heartburn resolved, denies any abdominal pain, dark or tarry stools. She states still infrequently takes ibuprofen with heartburn symptoms-she was advised to stop this to avoid risk of aspiration, additionally needs completely stopped for 1 week prior to surgery per surgeon's office. She verbalized understanding and denied questions or concerns. Patient denies chest pain, shortness of breath, dyspnea on exertion, snoring, witnessed apneas, fever, chills, cough, wheezing, or palpitations. Physical Exam Vital Signs Vitals BP 149/74 P 54 TEMP 97.7 SP02 99% on RA RESP 19 Physical Patient resting comfortably in chair in no acute distress, alert and oriented, responding appropriately throughout visit Limited cervical extension range of motion without pain TMD < 3 finger breadths Mallampati Score 2 Dentition: intact, denies chipped or loose teeth, caps/crowns, implants or bridges Lungs: normal respiratory effort. Good air movement, clear throughout to auscultation, no adventitious breath sounds Cardiac: regular rate and rhythm, no murmurs noted Carotid arteries: negative bruit bilat Lab Results Anesthesia Preop Results Results Anesthesia Widget: WBC 8.81 K/ul (4.8-10.8) 07/21/24 Hgb 15.0 g/dl (12.0-16.0) 07/21/24 Hct 46.1 % (37.0-47.0) 07/21/24 Plt 193 K/uL (130-400) 07/21/24 Na 138 mmol/L (136-145) 07/21/24 K 3.9 mmol/L (3.5-5.1) 07/21/24 Cl 102 mmol/L (98-107) 07/21/24 CO2 28 mmol/L (21-32) 07/21/24 BUN 14 mg/dl (6-23) 07/21/24 Creat 0.83 mg/dl (0.6-1.2) 07/21/24 Glucose Level 112 mg/dl (70-99(Fasting)) H 07/21/24 PT 10.9 Seconds (9.0-12.0) 07/21/24 PTT 25 Seconds (21-31) 07/21/24 INR 1.0 (0.9-1.1) 07/21/24 Urine Color Yellow 07/21/24 Urine Appearance Clear (Clear) 07/21/24 Urine pH 5.0 (4.5-7.5) 07/21/24 Urine Specific [place] 1.022 (1.000-1.030) 07/21/24 Urine Protein Negative (Negative) 07/21/24 Urine Glucose (UA) Negative (Negative) 07/21/24 Urine Ketones Negative (Negative) 07/21/24 Urine Blood Negative (Negative) 07/21/24 Urine Nitrite Negative (Negative) 07/21/24 Urine Bilirubin Negative (Negative) 07/21/24 Urine Urobilinogen Negative (Negative) 07/21/24 Urine Leukocyte Esterase Negative (Negative) 07/21/24 Blood Type A Negative 07/21/24 Antibody Screen NEGATIVE 07/21/24 Testing Electrocardiogram Date: 07/21/24 Normal sinus rhythm with sinus arrhythmia, rate 62 bpm Left anterior fascicular block Moderate voltage criteria for LVH, may be normal variant Nonspecific ST abnormality Chest X-Ray Date: 07/21/24 No acute chest disease.
[2024-08-25] MEDS: ACETAMINOPHEN 500 MG TAB PO SCH (11:26)
[2024-08-25] MEDS: LR 60ML/HR IV SCH (11:27)
[2024-08-25] MEDS: CeleBREX 200 MG CAP PO SCH (11:27)
[2024-08-25] MEDS: GABAPENTIN 300 MG CAP PO SCH ×2 (11:27→21:17)
[2024-08-25] MEDS: LR 15ML/HR IV SCH (11:38)
[2024-08-25] MEDS ORDERED: HYDROmorphone INJ 1 MG/ML SYRINGE IV PRN ×2 (11:54→17:01)
[2024-08-25] MEDS ORDERED: ATROPINE SULFATE 0.1 MG/ML 10ML SYR IV PRN (11:54)
[2024-08-25] MEDS ORDERED: LABETALOL HCL IV 5 MG/ML 20ML IV PRN (11:54)
[2024-08-25] MEDS ORDERED: ONDANSETRON INJ 2 MG/ML 2 ML VIAL IV PRN (11:54)
[2024-08-25] MEDS ORDERED: PROMETHAZINE HCL 6.25 MG in SODIUM CHLORIDE 0.9% 50 ML IV PRN (11:54)
[2024-08-25] MEDS ORDERED: fentaNYL citrate PF 100 MCG/2 ML VIAL ONE (12:45)
[2024-08-25] MEDS ORDERED: MIDAZOLAM HCL 1 MG/ML 2ML VIAL ONE (12:45)
--- NOTE | 2024-08-25 12:54 | History & Physical Bridge Note ---
Date of Service August 25, 2024 History & Physical Bridge Note I have examined the patient, reviewed the History & Physical and in the interval since the performance of the History & Physical I have noted the following changes of clinical significance: no changes noted
--- NOTE | 2024-08-25 12:56 | History & Physical Report ---
Date of Service August 25, 2024 Assessment & Plan (1) Lumbosacral spondylosis with radiculopathy: Plan: L4-L5 decompression and fusion, possible L2-L3 L3-L4 History of Present Illness Chief Complaint: Back and bilaterally pain Primary Care Provider: Teresa Bruner MD Patient is this is 74-year-old female who presents with chronic persistent back and bilateral leg pain after failing since course of nonoperative care is here for surgical invention. Allergies Allergy/AdvReac Type Severity Reaction Status Date / Time Penicillins Allergy Intermediate Hives Verified 08/25/24 11:25 Home Medications Medication Instructions Recorded Confirmed Type acetaminophen 500 mg capsule 1,000 mg PO Q8 PRN Pain 05/28/24 08/25/24 History cholecalciferol (vitamin D3) 50 100 mcg PO BID 08/19/24 08/25/24 History mcg (2,000 unit) tablet (Vitamin D3) gabapentin 300 mg capsule 300 mg PO TID #90 caps 08/19/24 08/25/24 Rx Past Med/Surg History Problem List (Updated 08/25/24 @ 12:55 by Anthony Banda DO) Lumbosacral spondylosis with radiculopathy Peripheral neuropathy due to chemotherapy Lumbar radicular pain Spinal stenosis of lumbar region Anterolisthesis of lumbosacral spine Medical History (Updated 08/25/24 @ 12:55 by Anthony Banda DO) Elevated ferritin evaluated by heme/onc, per patient did not require additional evaluation/monitoring Hx pulmonary embolism (~2021) left lung (~2021) during chemotherapy treatments - unknown cause. treated with anticoagulants. no longer needs and no further issues. 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 History of endometrial cancer Papillary serous adenocarcinoma dx 02/2021 - surgery 06/2021 + chemo 06/07/21 endometrial bx h/o chemo 08/29/21-01/23/22 History of pancytopenia History of herniated intervertebral disc History of chemotherapy 08/29/21-01/23/22 Surgical History S/P epidural steroid injection History of hysterectomy for cancer TLH-BSO with lymph node biopsy on 07/19/22 History of tooth extraction all teeth removed History of tubal ligation H/O colonoscopy History of cataract surgery Bilateral Family History Father , in his 70s Lung cancer Mother , in her 80s Diabetes Coronary heart disease Hypertension Sister Diabetes Hypertension Brother ALS (amyotrophic lateral sclerosis) Sister Diabetes Hypertension Dialysis patient Sister No problems noted. Brother Myocardial infarction Brother Diabetes Daughter No problems noted. Son Diabetes Hypertension Heart disease Other No family history of adverse response to anesthesia Denies family history of Ovarian cancer Prostate cancer Breast cancer Colorectal cancer Social History Smoking Status: Former smoker Tobacco Type: Cigarettes Age Started Using Tobacco: 29; Age Quit Using Tobacco: 31; packs per day: 0.25; Cigarettes Per Day: 3-4; Smoking End Date: quit many years ago ~45 years ago; Second Hand Exposure: No; Do You Dip or Chew Tobacco: No; Tobacco Cessation Education Requested by Patient: No Hx Alcohol Use: Yes Alcohol type: wine and hard liquor Alcohol Intake Freq uency: Monthly or Less Hx Substance Use: No Preferred Language: Malagasy Communication Ability: Effective Visual Impairment: No Limitations Hearing Ability: Normal Quality Measurement Specialist Required: No Beliefs That Will Affect Care: None marital status: / Current Living Situation: Family Current Living Situation Comment: her son lives with patient current occupational status: retired current occupation: [employer] How many Children do You have: 2 Other Information That Helps Us Care for You: No Feels Safe at Home: Yes Safety Concerns: Feels Safe At This Time Childhood Exposure to Second-Hand Smoke: Yes Diet: regular caffeine: No during the past year weight has: decreased > 10 lbs Dental Care, Regularly: No Physical Activity Frequency: 1-2 Times per Week Seatbelt Use: always Sunscreen Use: Yes Assistive Devices: Denture - Upper and Denture - Lower Physical Exam Physical Exam: Patient is alert and oriented heart regular rhythm Lungs clear Results & Data Results & Data Vital Signs (Past 12 Hours) Vital Signs Temp Pulse Resp BP Pulse Ox O2 Del Method 08/25/24 11:19 36.8 C 92 H 20 154/91 H 96 Room Air
[2024-08-25] MEDS: CLINDAMYCIN/D5W 900 MG/50 ML BAG IV SCH (13:21)
[2024-08-25] MEDS ORDERED: HYDROmorphone INJ 2 MG/ML SYR/VIAL ONE (13:42)
[2024-08-25] MEDS: BUPIVACAINE/EPINEPHRINE 0.25% 1:200,000 30 ML VIAL ONE (13:53)
[2024-08-25] MEDS ORDERED: DEXAMETHASONE SOD INJ 4 MG/ML VIAL ONE (14:03)
[2024-08-25] MEDS ORDERED: PHENYLEPHRINE HCL 10 MG/ML VIAL ONE (14:04)
[2024-08-25] MEDS ORDERED: ONDANSETRON INJ 2 MG/ML 2 ML VIAL ONE (14:04)
[2024-08-25] MEDS ORDERED: ROCURONIUM BROMIDE 10 MG/ML 5 ML VIAL IV ONE (14:04)
[2024-08-25] MEDS ORDERED: LIDOCAINE 2% 2 ML VIAL/AMP(20MG/ML) INFIL ONE (14:04)
[2024-08-25] MEDS ORDERED: PROPOFOL IV EMULSION 10 MG/ML 20 ML VIAL IV ONE (14:04)
[2024-08-25] MEDS ORDERED: ePHEDrine sulfate 50 MG/ML AMP ONE (14:16)
[2024-08-25] MEDS: ceFAZolin 330 MG/ML 1 GM VIAL ONE (14:18)
[2024-08-25] MEDS: FLOSEAL HEMOSTATIC MATRIX 10ML TOP ONE (15:21)
[2024-08-25] MEDS ORDERED: SUGAMMADEX SODIUM 200 MG/2 ML VIAL IV ONE (15:32)
--- NOTE | 2024-08-25 15:37 | Operative Report ---
Post Operative Report Pre & Post Diagnosis Operation Date: 08/25/24 12:35 Pre-Op Diagnosis: #1 lumbosacral spondylosis with radiculopathy L2-L3, L3-L4 L4-5. #2 lumbar spinal stenosis #3 lumbar spondylolisthesis L4-L5 Post-Op Diagnosis: Same with iatrogenic spondylolisthesis L2-L3 L3-L4. I identified the patient and participated in the time-out.: Yes Procedure Operation Date: 08/25/24 12:35 Actual Procedures #1 lumbar decompression with bilateral medial facetectomies and foraminotomies L2-L3, L3-L4 L4-L5. #2 posterior spinal fusion L2-L5. #3 placed posterior segmental instrumentation L2-L5. #4 interbody fusion L4-L5. #5 placement Spira 10 x 26 mm x 2 at L4-5. #6 placement locally harvested morselized autograft posterior gutters. #7 placement fuse collagen sponge combined with Koros and a posterior lateral gutters and os design bone graft and interbody space. #8 application of versa wrap of the exposed dura. Surgeon Anthony Banda, DO Fire Alarm Inspector Shaylee Coon Estimated Blood Loss 150 Findings Consistent with Post-Op Diagnosis Specimens None Indications This is a 74-year-old female who presents with the above-mentioned diagnosis. After undergoing and failing an extensive course of nonoperative care and struggling with continued back and leg pain she is here for surgical invention. Description of Procedure Patient was met with identified informed consent obtained. Patient was then taken to the operative suite underwent intubation placed in a prone position the Boby able to Sebastián frame. All bony promises well-padded eyes inspected to ensure no external pressure placed upon the. This point lumbar spine is prepped and draped no sterile fashion. Sharp dissection with the assistance of Bovie cautery performed down to and exposing the lamina of L to L3-L4 bilaterally. I then performed a complete laminectomy of L4 with bilateral medial facetectomies and foraminotomies addressing severe spinal stenosis and foraminal disease. This is followed by laminectomy of L3. I had to perform aggressive bilateral medial facetectomies to address the severe subarticular and foraminal stenosis. I then performed a laminectomy of L2 again finding severe subarticular and foraminal stenosis requiring aggressive facetectomies. Subsequently due to the iatrogenic instability and spondylolisthesis induced at these levels I chose to fuse L2-L3 L3-L4 as well as L4-5. Pedicle screws were placed bilaterally with assistance of fluoroscopy in the process srikanth contoured and placed. By way of transforaminal approach on the right discectomy of L4-5 was performed endplates guided to subcortical bleeding bone and a 10 x 26 mm Spira cage filled with os design bone graft tapped in position. Then proceeded to the left transforaminal region at L4-L5. Again discectomy performed endplates. To subcortical bleeding bone and a second 10 x 26 mm Spira cage filled with os designed tapped in position. The rods were then locked into final position bilaterally. Expose the transverse processes of L2-L3 L4-5 bilaterally. There were burred to subcortical bleeding bone and infuse collagen sponge, with Koros and locally harvested morselized autograft placement posterior gutters. Versa wrap placed over the exposed dura. 15 round MARK ANTHONY drain inserted. The incision was then closed with 1 Vicryl the fascia 2-0 Vicryl subcutaneously and 4 Monocryl for final skin closure. Steri-Strips sterile dressing placed. Patient waken taken PACU stable condition. Please note spinal cord monitoring was utilized at the procedure no changes noted. Lastly Shaylee Coon was present at the entire procedure involved the patient positioning complex portion of the surgery and final skin closure. I attest to the content of the Intraoperative Record and any orders documented therein. Any exceptions are noted below.
--- NOTE | 2024-08-25 15:50 | Fluoroscopy Report ---
FL lumbar spine 2-3V CLINICAL HISTORY: L2-L5 DECOMPRESSION AND FUSION COMPARISON STUDY: Lumbar spine MRI May 12, 2024. Lumbar spine radiographs May 28, 2024. FLUOROSCOPY TIME: 22 seconds. Ka,r: 14.94 mGy FLUOROSCOPIC IMAGES: 2 FINDINGS: Fluoroscopy was provided during L2-L5 decompression and bilateral pedicle screw fusion. L4- L5 discectomy with interbody spacer is noted. Hardware is intact. No unexpected radiopaque foreign margaret dies. IMPRESSION: Fluoroscopy provided during L2-L5 decompression and fusion. ACT 112: Negative or not required by law. Electronically signed by: Hunter Phillips M.D. 08/25/2024 3:49 PM
[2024-08-25] MEDS ORDERED: PROMETHAZINE 12.5 MG/50.5 ML BAG IV PRN (17:01)
[2024-08-25] MEDS ORDERED: DO NOT ADMINISTER PNEUMOCOCCAL VACCINE PRN (17:01)
[2024-08-25] MEDS ORDERED: SOD PHOSPHATE/SOD BIPHOSPHATE ENEMA 132 ML BTL PR PRN (17:01)
[2024-08-25] MEDS ORDERED: MAGNESIUM HYDROXIDE SUSP 30 ML UDC PO PRN (17:01)
[2024-08-25] MEDS ORDERED: DO NOT ADMINISTER FLU VACCINE PRN (17:01)
[2024-08-25] MEDS ORDERED: LORazepam 0.5 MG TAB PO PRN (17:01)
[2024-08-25] MEDS ORDERED: FAMOTIDINE 20 MG TAB PO PRN (17:01)
[2024-08-25] MEDS ORDERED: NALOXONE HCL 0.4 MG/1 ML VIAL/CARP IV PRN (17:01)
[2024-08-25] MEDS ORDERED: ACETAMINOPHEN 1,000 MG/100 ML VIAL IV PRN (17:01)
[2024-08-25] MEDS ORDERED: ONDANSETRON 4 MG OD TAB PO PRN (17:01)
[2024-08-25] MEDS ORDERED: traMADol HCL 50 MG TABLET PO PRN (17:01)
[2024-08-25] MEDS ORDERED: HYDROmorphone INJ 0.5 MG/0.5 ML SYR IV PRN (17:01)
[2024-08-25] MEDS ORDERED: diphenhydrAMINE Capsule 25 MG CAP PO PRN (17:01)
[2024-08-25] MEDS ORDERED: ALUMINUM/MAGNESIUM SUSP 30 ML UDC PO PRN (17:01)
[2024-08-25] MEDS ORDERED: METOCLOPRAMIDE HCL INJ 5 MG/ML 2 ML VIAL IV PRN (17:01)
[2024-08-25] MEDS ORDERED: hydrOXYzine HCl 25 MG TAB PO PRN (17:01)
[2024-08-25] MEDS ORDERED: LORazepam 2 MG/1 ML VIAL IV PRN (17:01)
[2024-08-25] MEDS ORDERED: bisacodyL 10 MG SUPP PR PRN (17:01)
--- NOTE | 2024-08-25 17:06 | Anesthesiology Progress Note ---
Date of Service August 25, 2024 Anesthesia Post Procedure Vital Signs Vital Signs: Temp Pulse Pulse Resp BP BP Pulse Ox 08/25/24 16:45 36.3 C L 88 16 116/78 97 08/25/24 16:30 36.5 C 85 12 143/77 H 96 08/25/24 16:20 88 16 127/77 95 08/25/24 16:10 95 H 16 124/82 95 08/25/24 16:00 85 12 118/80 98 08/25/24 15:50 36.7 C 96 H 18 154/82 H 97 08/25/24 11:19 36.8 C 92 H 20 154/91 H 96 O2 Del Method O2 Flow Rate 08/25/24 16:45 Nasal Cannula 2 08/25/24 16:30 Nasal Cannula 2 08/25/24 16:20 Nasal Cannula 2 08/25/24 16:10 Nasal Cannula 2 08/25/24 16:00 Oxymask 4 08/25/24 15:50 Oxymask 11 08/25/24 11:19 Room Air Pain Intensity Back: Pain Intensity: 2 Transfer of Care Handoff Completed per policy Notes Mental Status: alert / awake / arousable and participated in evaluation Patient Amnestic to Procedure: Yes Nausea / Vomiting: adequately controlled Pain: adequately controlled Airway Patency, RR, SpO2: stable & adequate BP & HR: stable & adequate Hydration State: stable & adequate Anesthetic Complications: no major complications apparent and Pt Satisfied with anesthetic care
--- NOTE | 2024-08-25 17:35 | Hospitalist Consultation ---
<Statement entered by Jordana Pryor MD - 08/25/24 19:31> I have reviewed vital signs, chart notes, labs and imaging. I have also discussed the management of the patient with the CADEN and I agree with the exam findings documented in the history and physical examination and the documented assessment and plan unless otherwise stated below. She does have a history of a PE in the past but while undergoing cancer chemotherapy. Because of this recommend DVT prophylaxis when she is able to tolerate this safely from a surgical perspective. Date of Consultation August 25, 2024 Assessment & Plan (1) History of endometrial cancer: (2) Lumbosacral spondylosis with radiculopathy: Plan Ne is a 74F with a PMHx of endometrial cancer s/p chemotherapy and vitamin D deficiency whom presents to the hospital for elective surgery with Dr. Banda. #Hx of endometrial CA/ hx of PE s/p hysterectomy and chemo therpay. Noted, no acute management at this time. PE occurred while undergoing chemotherapy - completed course of anticoagulation. #Lumbosacral spondylosis with radiculopathy s/p L2-L5 Decompression and Fusion with Dr. Banda 08/25 -pain control, dvt proh, abx and discharge planning per primary team - Continue PO vit D therapy as instructed - EBL 150, check AM CBC to monitor for post operative anemia - wean O2 as able, encouraged incentive spirometer. Dispo: medically stable Thank you for allowing us to participate in the care of this patient, please reach out with any questions or concerns. Medicine will continue to follow for AM labs. History of Present Illness Reason for Consultation: medical management Requesting Physician: Dr. Banda Attending Physician: Anthony Banda, History of Present Illness Ne is a 74F with a PMHx of endometrial cancer s/p chemotherapy and vitamin D deficiency whom presents to the hospital for elective surgery with Dr. Banda. Patient seen post operatively in room 311, daughter present at bedside. Patient is feeling well, eating dinner during eval without nausea or vomiting. Pain is controlled at rest but has not tried to move. No ETOH or smoking. No CPAP at home. Does not normally wear oxygen, encouraged incentive spirometer use. Allergies Allergy/AdvReac Type Severity Reaction Status Date / Time Penicillins Allergy Intermediate Hives Verified 08/25/24 11:25 Home Medications Medication Instructions Recorded Confirmed Type acetaminophen 500 mg capsule 1,000 mg PO Q8 PRN Pain 05/28/24 08/25/24 History cholecalciferol (vitamin D3) 50 100 mcg PO BID 08/19/24 08/25/24 History mcg (2,000 unit) tablet (Vitamin D3) gabapentin 300 mg capsule 300 mg PO TID #90 caps 08/19/24 08/25/24 Rx Patient History Medical History (Updated 08/25/24 @ 17:31 by Sierra Barcenas PA-C) Elevated ferritin evaluated by heme/onc, per patient did not require additional evaluation/monitoring Hx pulmonary embolism (~2021) left lung (~2021) during chemotherapy treatments - unknown cause. treated with anticoagulants. no longer needs and no further issues. 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 History of endometrial cancer Papillary serous adenocarcinoma dx 02/2021 - surgery 06/2021 + chemo 06/07/21 endometrial bx h/o chemo 08/29/21-01/23/22 History of pancytopenia History of herniated intervertebral disc History of chemotherapy 08/29/21-01/23/22 Surgical History S/P epidural steroid injection History of hysterectomy for cancer TLH-BSO with lymph node biopsy on 07/19/22 History of tooth extraction all teeth removed History of tubal ligation H/O colonoscopy History of cataract surgery Bilateral Family History Father , in his 70s Lung cancer Mother , in her 80s Diabetes Coronary heart disease Hypertension Sister Diabetes Hypertension Brother ALS (amyotrophic lateral sclerosis) Sister Diabetes Hypertension Dialysis patient Sister No problems noted. Brother Myocardial infarction Brother Diabetes Daughter No problems noted. Son Diabetes Hypertension Heart disease Other No family history of adverse response to anesthesia Denies family history of Ovarian cancer Prostate cancer Breast cancer Colorectal cancer Social History Smoking Status: Former smoker Tobacco Type: Cigarettes Age Started Using Tobacco: 29; Age Quit Using Tobacco: 31; packs per day: 0.25; Cigarettes Per Day: 3-4; Smoking End Date: quit many years ago ~45 years ago; Second Hand Exposure: No; Do You Dip or Chew Tobacco: No; Tobacco Cessation Education Requested by Patient: No Hx Alcohol Use: Yes Alcohol type: wine and hard liquor Alcohol Intake Frequency: Monthly or Less Hx Substance Use: No Preferred Language: Hungarian Communication Ability: Effective Visual Impairment: No Limitations 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 Beliefs That Will Affect Care: None marital status: / Current Living Situation: Family Current Living Situation Comment: her son lives with patient current occupational status: retired current occupation: [employer] How many Children do You have: 2 Other Information That Helps Us Care for You: No Feels Safe at Home: Yes Safety Concerns: Feels Safe At This Time Childhood Exposure to Second-Hand Smoke: Yes Diet: regular caffeine: No during the past year weight has: decreased > 10 lbs Dental Care, Regularly: No Physical Activity Frequency: 1-2 Times per Week Seatbelt Use: always Sunscreen Use: Yes Assistive Devices: Denture - Upper and Denture - Lower Review of Systems Review of Systems: All systems reviewed & are unremarkable except as noted in Subjective Physical Exam Physical Exam: General: NAD, VS as above Resp: normal respiratory effort, diminished in bases, weaned to 1L NC CV: RRR, no murmur, Abd: normal bowel sounds, non tender, no hepatosplenomegaly Extremities: Moves all extremities, able to wiggle toes bilaterally, SCDs in place Neuro: A&O x3, Results & Data Results & Data Vital Signs (Past 12 Hours) Vital Signs Temp Pulse Pulse Resp BP BP Pulse Ox 08/25/24 17:19 97.3 F L 78 17 146/84 H 96 08/25/24 16:45 97.3 F L 88 16 116/78 97 08/25/24 16:30 97.7 F 85 12 143/77 H 96 08/25/24 16:20 88 16 127/77 95 08/25/24 16:10 95 H 16 124/82 95 08/25/24 16:00 85 12 118/80 98 08/25/24 15:50 98.1 F 96 H 18 154/82 H 97 08/25/24 11:19 98.2 F 92 H 20 154/91 H 96 O2 Del Method O2 Flow Rate 08/25/24 17:19 Nasal Cannula 2 08/25/24 16:45 Nasal Cannula 2 08/25/24 16:30 Nasal Cannula 2 08/25/24 16:20 Nasal Cannula 2 08/25/24 16:10 Nasal Cannula 2 08/25/24 16:00 Oxymask 4 08/25/24 15:50 Oxymask 11 08/25/24 11:19 Room Air PG Care Time/CCT Total # of Minutes Spent Total Time Spent with Patient: Total time spent is greater than 50% in coordination of care (as documented) at patient's floor/unit and/or counseling patient: Coding Level of Care Code 03446 IN/OBS CONSULT LVL 3,45M Diagnoses History of endometrial cancer Z85.42 Lumbosacral spondylosis with radiculopathy M47.27
[2024-08-25] MEDS: ACETAMINOPHEN 500 MG TAB PO PRN (18:25)
[2024-08-25] MEDS: DOCUSATE SODIUM/SENNA 50/8.6MG TAB PO SCH (20:11)
[2024-08-25] MEDS: CHOLECALCIFEROL 25 MCG (1000 UNITS) TAB PO SCH (20:11)
[2024-08-25] MEDS: CLINDAMYCIN/D5W 600 MG/50 ML BAG IV SCH (21:17)
[2024-08-25] MEDS: oxyCODONE HCL IR 5 MG TAB (IMMEDIATE RELEASE) PO PRN (22:51)
[2024-08-26] MEDS: ONDANSETRON INJ 2 MG/ML 2 ML VIAL IV PRN (05:49)
[2024-08-26] MEDS: POLYETHYLENE (MIRALAX) 17 GM PACK PO SCH (06:02)
[2024-08-26 06:05] LABS: Basophils # (auto) 0.02 K/uL (0.00-0.20); Basophils % (auto) 0.1 %; Eosinophils # (auto) 0.01 K/uL (0.00-0.50); Eosinophils % (auto) 0.1 %; Hematocrit (blood only) 36.3 % (37.0-47.0); Hemoglobin 12.2 g/dl (12.0-16.0); Immature Granulocytes # (auto) 0.06 K/uL (0.01-0.20); Immature Granulocytes % (auto) 0.4 %; Lymphocytes # (auto) 1.38 K/uL (1.20-3.40); Lymphocytes % (auto) 10.3 %; Mean Corpuscular Hemoglobin 31.6 pg (25.0-34.0); Mean Corpuscular Hgb Conc 33.6 g/dL (32.0-36.0); Mean Platelet Volume 10.4 fL (9.4-12.4); Monocytes # (auto) 0.68 K/uL (0.11-0.59); Monocytes % (auto) 5.1 %; Neutrophils # (auto) 11.29 K/uL (1.40-6.50); Platelet Count 213 K/uL (130-400); RDW Coefficient of Variation 12.5 % (11.5-14.5); RDW Standard Deviation 43.2 fL (36.4-46.3); Red Blood Count 3.86 M/uL (4.20-5.40); White Blood Count 13.44 K/ul (4.8-10.8)
[2024-08-26 06:20] LABS: BUN Creatinine Ratio 16.9 (10-20); Calcium 8.9 mg/dl (8.6-10.3); Creatinine Clr Calc Pharmacy 63.2 ml/min; Potassium 3.9 mmol/L (3.5-5.1)
[2024-08-26] MEDS: dexAMETHasone 6 MG in SYRINGE 0 ML IV SCH (07:50)
--- NOTE | 2024-08-26 12:03 | Orthopedic Progress Note ---
Date of Service August 26, 2024 Assessment & Plan (1) Lumbosacral spondylosis with radiculopathy: Plan: At this time we will continue physical therapy monitor MARK ANTHONY output over the discharge home in the next few days. Admission and Anticipated Discharge Date Admission Date: August 25, 2024 Subjective Patient's back pain is controlled leg symptoms are improved. Physical Exam Physical Exam: Patient is up and ambulating the halls. She has excellent posture. Good strength testing. Results & Data Vital Signs (Past 12 Hours) Vital Signs Temp Pulse Resp BP Pulse Ox O2 Del Method 08/26/24 08:07 36.6 C 76 16 104/68 94 Room Air 08/26/24 03:16 36.9 C 73 16 111/69 94 Room Air
--- NOTE | 2024-08-26 14:55 | Hospitalist Progress Note ---
Date of Service August 26, 2024 Assessment & Plan (1) History of endometrial cancer: (2) Lumbosacral spondylosis with radiculopathy: Plan Ne is a 74F with a PMHx of endometrial cancer s/p chemotherapy and vitamin D deficiency whom presents to the hospital for elective surgery with Dr. Banda. #Hx of endometrial CA/ hx of PE s/p hysterectomy and chemo therpay. Noted, no acute management at this time. PE occurred while undergoing chemotherapy - completed course of anticoagulation. #Lumbosacral spondylosis with radiculopathy s/p L2-L5 Decompression and Fusion with Dr. Banda 08/25 -pain control, dvt proh, abx and discharge planning per primary team - Continue PO vit D therapy as instructed - EBL 150, hgb 12.2 post operatively. Dispo: medically stable Thank you for allowing us to participate in the care of this patient. Medicine will sign off, please reconsult with any new concerns. Admission and Anticipated Discharge Date Admission Date: August 25, 2024 Supervising Physician Co-Signing Physician Notes PA Supervision Note: I did not personally see or examine the patient today, but I verified all wall points of RITA Barcenas's assessment and plan with the following exceptions/additions: None Subjective patient seen lying in bed. Pain is controlled. Passing gas. Has ambulated in the halls and done stairs. No acute concerns. Review of Systems Review of Systems: All systems reviewed & are unremarkable except as noted in Subjective Physical Exam Physical Exam: General: NAD, VS as above Resp: normal respiratory effort, clear to auscultation CV: RRR, no murmur, Abd: normal bowel sounds, non tender, no hepatosplenomegaly Extremities: Moves all extremities, able to wiggle toes bilaterally, SCDs in place Neuro: A&O x3, Results & Data Results & Data Vital Signs (Past 12 Hours) Vital Signs Temp Pulse Resp BP BP Pulse Ox O2 Del Method 08/26/24 13:34 97.9 F 73 16 119/76 94 Room Air 08/26/24 08:07 97.9 F 76 16 104/68 94 Room Air 08/26/24 03:16 98.4 F 73 16 111/69 94 Room Air Laboratory Results cbc and chemistry reviewed PG Care Time/CCT Total # of Minutes Spent Total Time Spent with Patient: Total time spent is greater than 50% in coordination of care (as documented) at patient's floor/unit and/or counseling patient: Coding Level of Care Code 08140 SUB INP/OBS CARE 2MIN Diagnoses History of endometrial cancer Z85.42 Lumbosacral spondylosis with radiculopathy M47.27
[2024-08-27] MEDS: CeleBREX 200 MG CAP PO SCH (05:39)
[2024-08-27] MEDS: CLINDAMYCIN/D5W 900 MG/50 ML BAG IV SCH (05:39)
[2024-08-27] MEDS: ACETAMINOPHEN 500 MG TAB PO SCH (05:39)
[2024-08-27] MEDS: GABAPENTIN 300 MG CAP PO SCH (05:39)
[2024-08-27] MEDS: LR 15ML/HR IV SCH (05:39)
[2024-08-27] MEDS: LR 60ML/HR IV SCH (05:40)
--- NOTE | 2024-08-27 10:06 | Orthopedic Progress Note ---
Date of Service August 27, 2024 Assessment & Plan (1) Lumbosacral spondylosis with radiculopathy: Plan: At this time we will continue physical therapy monitor her MARK ANTHONY output anticipate discharge home tomorrow. Admission and Anticipated Discharge Date Admission Date: August 25, 2024 Subjective Back pain controlled leg pain improved Physical Exam Physical Exam: Patient is in the chair at bedside. Is comfortable. Discussed when to testing. Results & Data Vital Signs (Past 12 Hours) Vital Signs Temp Pulse Resp BP Pulse Ox O2 Del Method 08/27/24 07:16 36.6 C 62 16 109/72 96 Room Air
[2024-08-27 21:34] VITALS: RESP 16; O2SAT 96
[2024-08-28 06:58] VITALS: BP 139/78; PULSE 55; TEMP 98.1
--- NOTE | 2024-08-28 08:37 | Discharge Summary ---
Date of Service August 28, 2024 Admission HPI Per Admitting Provider Patient is this is 74-year-old female who presents with chronic persistent back and bilateral leg pain after failing since course of nonoperative care is here for surgical invention. Principal Diagnosis Lumbar spondylosis with radiculopathy Discharge Data Allergies Allergy/AdvReac Type Severity Reaction Status Date / Time Penicillins Allergy Intermediate Hives Verified 08/25/24 11:25 Consultations 08/25/24 17:01 Consult Hospitalist Routine Procedures Performed Operation Date: 08/25/24 12:35 Actual Procedures p L2-L5 Decompression and Fusion, Spinal Cord Monitoring(Not Applicable) - Anthony Banda DO Ordered Studies 08/25/24 12:35 FL lumbar spine 2-3V Routine Hospital Course (1) Lumbosacral spondylosis with radiculopathy: Patient underwent lumbar decompression fusion trial as well as taken to the orthopedic for postoperative. Post ablation progressed appropriately. Excellent strength testing. MARK ANTHONY drain decreasing. Excellent pain control subsequent discharge home. Discharge orders instructions from chart for further review. Total Time Total Time Spent Total Time Spent (In Minutes): 20 minutes Discharge Plan Discharge Items Patient Disposition: Home - Self-Care Reason For Visit: Lumbar Region Spinal Stenosis with Neurogenic Christen Discharge Diagnosis: Lumbar spinal stenosis with spondylosis and radiculopathy Activity: As commented below Non-emergency contact: Primary Care Provider Call non-emergency contact if: you have any medication questions Follow-up/Referrals: Teresa Bruner MD [Primary Care Provider] - Diet: Regular Addtl Attending Provider Instructions: ACTIVITY RECOMMENDATIONS: SELF CARE INSTRUCTIONS AFTER THORACIC/LUMBAR FUSIONS 1. You may walk to your tolerance. It is good exercise for your legs and back. Expect some back and intermittent leg aches and pains. 2. You may perform "counter-top" level activities (make a sandwich, huy with a project, etc.). 3. No bending or lifting of more than 10 pounds or back twisting of any nature (roll like a log when turning in bed). 4. You may ride in a car for 20-30 minutes at a time. No driving until after your first visit with your doctor. 5. Frequent changes of position and restricting sitting to 30 minutes at a time will help limit the amount of back spasms and stiffness you may experience. 6. You may discontinue the use of ambulatory aids (cane, crutches, etc.) once your strength and confidence allow. 7. You may window shade estimator the shower and let water strike your incision when you arrive home at least once daily. Do not take a tub bath, sit in a hot tub or go into a swimming pool until after your first recheck in the office. 8. You may resume previous diet. SPECIAL CARE INSTRUCTIONS: VERY IMPORTANT TO READ AND REVIEW A. Your surgical incision has been closed with a cosmetic suture under the skin that will dissolve in about 6 weeks. In 14 days, you can use a pair of clean scissors and cut the suture that is left outside of the skin at the ends of your incision. 1. The small skin tapes can be removed 7 days after surgery if they have not fallen off by that point. 2. You may keep the wound open to air as much as possible to promote healing after post-op day number 5 unless told otherwise by your doctor. 3. If you think the wound looks like it is becoming infected (redness or worsening drainage) and/or you are experiencing fever, chill or worsening back pain and muscle spasms, contact the office so that we may evaluate you as soon as possible. B. Complications are uncommon, but please contact us if you have any signs or symptoms of: 1. wound infection (fever higher than 102.5 degrees F, redness, separation of wound, drainage, or increasing pain from the incision) 2. blood clots in legs (pain, swelling, redness and warmth in legs) 3. urinary tract infection (fever higher than 102.5 degrees F, burning upon urination or increased frequency of urination) 4. nerve problems (inability to walk on your toes or heels, numbness, loss of bowel or bladder control) 5. any other symptoms that concern you C. Please call the office at if you have any concerns or questions about your operation or recovery. D. No smoking! Smoking drastically decreases the chance of a solid fusion. E. Do not take any anti-inflammatory medications (Indocin, Advil, Motrin, Aspirin, Naprosyn, etc.) as these may inhibit the chance of a solid fusion. Tylenol is okay to take for pain. MANAGING PAIN AFTER SPINAL SURGERY 1. Narcotic medication is intended for short-term use and will be provided for surgical pain. Surgical pain usually lasts for a period of 4-6 weeks. Narcotic medication includes Percocet, Vicodin, Darvocet, Tylenol #3 or Lortab. 2. Longer-term pain is more appropriately treated with non-narcotic medication such as Tylenol ES. 3. Muscle spasm is not appropriately treated with narcotics. Muscle relaxers such as Soma, Flexeril or Skelaxin can be used along with Tylenol ES. 4. Remember that we all live with some "aches and pains". This is not unusual or uncommon after an injury or as we get older. a. Back pain is expected and may include muscle spasms for 4 to 6 weeks after surgery. The pain should gradually improve. If the pain worsens for no apparent reason, please contact the office. b. Intermittent leg pain may also be experienced and should not be concerned about unless it worsens for no apparent reason. If so, please contact the office. 5. We will provide appropriate medication within the normal guidelines of their prescribed use. We will also be very cautious and aware of potential abuse and extended duration of patients' medication needs. a. Pain medications are for your comfort and to assist with sleep and rest so that the tissue can heal. They are not provided in order to return to normal activity and should not be used through the day. To do so or worsening pain at night can result from ongoing tissue damage and development of tolerance to the prescribed medicine. 6. Please allow 2-3 days to process refills. Prescriptions will not be mailed but must be picked up at the office. FOLLOW UP VISIT: Keep your scheduled follow-up appointment. Any questions, please call the office at . Pending Studies at Discharge: No Stand-Alone Forms: [facility] [employer], Smoking Cessation Medications and DC Order Prescriptions: New tramadol 50 mg tablet 50 mg PO Q6H PRN (Reason: pain, moderate) Qty: 30 0RF oxycodone 5 mg tablet 5 mg PO Q6H PRN (Reason: pain) Qty: 30 0RF Continued acetaminophen 500 mg capsule 1,000 mg PO Q8 PRN (Reason: Pain) cholecalciferol (vitamin D3) [Vitamin D3] 50 mcg (2,000 unit) tablet 100 mcg PO BID gabapentin 300 mg capsule 300 mg PO TID Qty: 90 5RF Discharge Orders: Discharge Order (Routine); Ordered 08/28/24 Ordered By: Anthony Banda Admission Data Admit Date/Time: 08/25/24 15:40 Attending Provider: Anthony Banda Admit Provider: Anthony Banda Primary Care Provider: Teresa Bruner
== END 2024-08-28 15:36 | disposition home or self-care (01) | DRG 428 ==
LOC: ASU 10:55 → 3E 15:40